=== PATIENT | male | born 1960 | race American Indian/Alaskan Native ===

== ENCOUNTER 2020-02-07 17:11 | Inpatient (IN) | payer BC ==
[2020-02-07] MEDS ORDERED: SODIUM CHLORIDE 0.9% 1000 ML 1,000 ML IV ONE ×4 (17:44→21:07)
--- NOTE | 2020-02-07 17:44 | Event Note ---
ED Screening Note ED Screening Note: pt presents with generalized weakness two days ago and fatigue states he took 20 units this morning of NPH no n/v/d no fever no cough no abd pain no hematochezia or melena PMHx DM2 no allergies to meds This initial assessment/diagnostic orders/clinical plan/treatment(s) is/are subject to change based on patients health status, clinical progression and re- assessment by fellow clinical providers in the ED. Further treatment and workup at subsequent clinical providers discretion. Patient/guardian urged not to elope from the ED as their condition may be serious if not clinically assessed and managed. Initial orders include: labs, UA
[2020-02-07 18:06] LABS: Basophils # (Auto) 0.1 K/mm3 (0.0-0.1); Eosinophils # (Auto) 0.1 K/mm3 (0.0-0.4); Hematocrit 38.5 % (35.5-45.6); Hemoglobin 12.1 gm/dl (11.8-15.2); Lymphocytes # (Auto) 1.1 K/mm3 (1.2-5.4); Lymphocytes % (Auto) 20.8 % (13.4-35.0); Mean Corpuscular HGB Conc 31 % (32-34); Mean Corpuscular Volume 101 fl (84-94); Monocytes # (Auto) 0.4 K/mm3 (0.0-0.8); Monocytes % (Auto) 6.9 % (0.0-7.3); Platelet Count 228 K/mm3 (140-440); Red Blood Count 3.82 M/mm3 (3.65-5.03); Red Cell Distribution Width 15.3 % (13.2-15.2)
--- NOTE | 2020-02-07 18:27 | Emergency Department Report ---
HPI - General Chief Complaint: Weakness Time Seen by Provider: 02/07/20 17:40 - HPI HPI: 59-year-old -[place] male presents to the emergency department from home with a complaint of a 2 to 3-day history of some generalized weakness and fatigue and elevated blood sugar despite alleged compliance with his insulin. Patient takes 36 units of Lantus at night and 20 units of NPH with meals. He denies any headache, vision change, slurred speech, chest pain, shortness of breath, fever, nausea or vomiting, abdominal pain. He has not taken anything else for his symptoms, other than home medications, prior to presentation. He does not have a primary care physician. He denies any alcohol, illicit drug use or tobacco use. No recent travel or sick contacts at home. ED Past Medical Hx - Past Medical History Hx Diabetes: Yes - Surgical History Additional Surgical History: AMPUTATION OF TOE - Social History Smoking Status: Never Smoker Substance Use Type: Cocaine ED Review of Systems ROS: Stated complaint: WEAK Other details as noted in HPI Comment: All other systems reviewed and negative Constitutional: weakness. denies: chills, fever Eyes: denies: eye pain, vision change ENT: denies: ear pain, throat pain Respiratory: denies: cough, shortness of breath Cardiovascular: denies: chest pain, palpitations Gastrointestinal: denies: abdominal pain, vomiting Genitourinary: denies: dysuria, discharge Musculoskeletal: denies: back pain, arthralgia Skin: denies: rash, lesions Neurological: denies: headache, numbness Physical Exam - Physical Exam Vital Signs: Vital Signs 02/07/20 02/07/20 17:26 17:46 Temperature 98.4 F Pulse Rate 102 H 95 H Respiratory 18 18 Rate Blood Pressure 99/38 111/61 [Left] O2 Sat by Pulse 97 99 Oximetry Physical Exam: GENERAL: The patient is well-developed well-nourished. HENT: Normocephalic. Atraumatic. Patient has dry mucous membranes. EYES: Extraocular motions are intact. NECK: Supple. Trachea is midline. CHEST/LUNGS: Clear to auscultation. There is no respiratory distress noted. HEART/CARDIOVASCULAR: Regular. There is mild tachycardia. ABDOMEN: Abdomen is soft, nontender. Patient has normal bowel sounds. SKIN: Skin is warm and dry. NEURO: The patient is awake, alert, and oriented. The patient is cooperative. The patient has no focal neurologic deficits. Normal speech. MUSCULOSKELETAL: There is no tenderness or deformity. There is no evidence of acute injury. ED Course Vital Signs 02/07/20 02/07/20 17:26 17:46 Temperature 98.4 F Pulse Rate 102 H 95 H Respiratory 18 18 Rate Blood Pressure 99/38 111/61 [Left] O2 Sat by Pulse 97 99 Oximetry - EJ/Peripheral Line Arm R Time Out Performed: Yes Indications: nurses unable to establis Skin Cleansed in Sterile Fashion: Yes Size: 20 Dressing Placed: Tegaderm, tape Patient Tolerated Procedure: well ED Medical Decision Making - Lab Data Result diagrams: 02/07/20 17:53 02/07/20 19:08 - Medical Decision Making This patient presents to the emergency department with a complaint of generalized weakness and generalized fatigue and uncontrolled blood sugar despite compliance with his Lantus and NPH insulin. The patient appears to be in early diabetic ketoacidosis as he has some venous acidosis, and elevated anion gap of 25, a blood sugar of 800 and a decreased bicarb of 16. Multiple liters of IV fluid have been ordered for resuscitation and the patient has been placed on insulin drip. Patient has been presented to the hospitalist, Dr. Merritt, for admission or further disposition. Critical Care Time: Yes Critical care time in (mins) excluding proc time.: 35 Critical care attestation.: If time is entered above; I have spent that time in minutes in the direct care of this critically ill patient, excluding procedure time. Due to the immediate potential for life-threatening deterioration due to underlying metabolic and endocrine conditions, I spent 35 minutes of critical care time with the patient. Critical Care Time: 35 minutes ED Disposition Clinical Impression: Hyponatremia, Dehydration DKA (diabetic ketoacidoses) Qualifiers: Diabetes mellitus type: type 1 Diabetes mellitus complication detail: without coma Qualified Code(s): E10.10 - Type 1 diabetes mellitus with ketoacidosis without coma Disposition: OP ADMIT IP TO THIS HOSP Is pt being admited?: Yes Condition: Stable
[2020-02-07 18:28] LABS: Bilirubin,Urine NEG (Negative); Blood,Urine NEG (Negative); Color,Urine Colorless (Yellow); Protein,Urine <15 mg/dL mg/dL (Negative); Urobilinogen,Urine < 2.0 mg/dL (<2.0); WBC,Urine < 1.0 /HPF (0.0-6.0)
[2020-02-07 18:33] LABS: Alanine Aminotransferase 10 units/L (7-56); Albumin 3.4 g/dL (3.9-5); BUN/Creatinine Ratio 17; Blood Urea Nitrogen 20 mg/dL (9-20); Calcium 8.7 mg/dL (8.4-10.2); Hemolysis Index 30
[2020-02-07] MEDS ORDERED: INSULIN REGULAR, HUMAN 100 UNITS in SODIUM CHLORIDE 0.9% 99 ML IV SCH ×2 (19:00→22:00)
--- NOTE | 2020-02-07 19:02 | History and Physical Report ---
History of Present Illness Chief complaint: I feel sick History of present illness: 59 YO Male with DM, malnutrition presents to ED for evaluation. Patient states that he has been "feeling sick" for the past 3 days with persistent symptoms over the same timeframe. Patient acknowledges generalized weakness, polydipsia, polyuria, and elevated blood glucose levels. Patient transported to [facility] via private vehicle for further care and evaluation. Patient seen and evaluated in the emergency department. Lab and imaging studies reviewed. Patient found to have serum glucose above 800 in the emergency department as well as clinical findings consistent with diabetic ketoacidosis. Patient initiated on DKA protocol and admitted to ICU due to increased risk for endocrine decompensation. Patient denies fever, chills, chest pain, palpitation, shortness of breath, recent ill contacts, trauma, or known exposure to COVID-19. No prior admission for review. All medication listed at time of admission has been reconciled. Critical care team consulted in ED. Past History Past Medical History: diabetes Past Surgical History: Other (Toe amputation) Social history: single. denies: smoking, alcohol abuse, prescription drug abuse Family history: diabetes, hypertension Medications and Allergies Allergies Allergy/AdvReac Type Severity Reaction Status Date / Time No Known Allergies Allergy Unverified 02/07/20 17:21 Active Meds: Active Medications Insulin Human Regular 100 (units/ Sodium Chloride) 100 mls @ 1 mls/hr IV TITR RADHA; Protocol Review of Systems Constitutional: no weight loss, no weight gain, no fever, no chills Ears, nose, mouth and throat: no ear pain, no tinnitis, no nose pain, no sinus pressure, no sinus pain Cardiovascular: no chest pain, no orthopnea, no palpitations, no edema, no syncope Respiratory: no cough, no cough with sputum, no dyspnea on exertion Gastrointestinal: no abdominal pain, no nausea, no vomiting, no constipation Genitourinary Male: no flank pain, no discharge, no urinary frequency, no nocturia, no incontinence Rectal: no pain, no bleeding Musculoskeletal: no neck pain, no shooting arm pain, no redness of joints Integumentary: no rash, no redness, no sores, no jaundice Neurological: no head injury, no transient paralysis, no weakness, no numbness, no tingling, no seizures, no tremors Psychiatric: no anxiety, no change in sleep habits, no sleep disturbances, no insomnia, no hypersomnia, no change in appetite, no suicidal ideation, no disorientation Endocrine: polyphagia, excessive thirst, polydipsia, polyuria, nocturia, high blood sugars, no cold intolerance, no excessive sweating Hematologic/Lymphatic: no easy bruising, no easy bleeding, no lymphadenopathy, no lymphedema Allergic/Immunologic: no allergic rhinitis, no wheezing, no anaphylaxis Exam - Constitutional Vitals: Temp Pulse Resp BP Pulse Ox 98.4 F 95 H 18 111/61 99 02/07/20 17:26 02/07/20 17:46 02/07/20 17:46 02/07/20 17:46 02/07/20 17:46 General appearance: Present: mild distress - EENT Eyes: Present: PERRL ENT: hearing intact, clear oral mucosa - Neck Neck: Present: supple, normal ROM - Respiratory Respiratory effort: normal Respiratory: bilateral: CTA - Cardiovascular Heart Sounds: Present: S1 & S2. Absent: rub, click - Extremities Extremities: pulses symmetrical, No edema Peripheral Pulses: within normal limits - Abdominal General gastrointestinal: Present: soft, non-tender, non-distended, normal bowel sounds Male genitourinary: Present: normal - Integumentary Integumentary: Present: clear, warm, dry - Musculoskeletal Musculoskeletal: generalized weakness - Psychiatric Psychiatric: appropriate mood/affect, intact judgment & insight - Neurologic Neurologic: CNII-XII intact, moves all extremities Results - Labs CBC & Chem 7: 02/07/20 17:53 02/07/20 19:08 Labs: Abnormal lab results 02/07/20 02/07/20 02/07/20 Range/Units 17:43 17:53 17:53 MCV 101 H (84-94) fl MCHC 31 L (32-34) % RDW 15.3 H (13.2-15.2) % Lymph # 1.1 L (1.2-5.4) K/mm3 Seg Neutrophils % 70.3 H (40.0-70.0) % VBG pH (7.320-7.420) Sodium 125 L (137-145) mmol/L Chloride 88.8 L (98-107) mmol/L Carbon Dioxide 16 L (22-30) mmol/L Glucose 797 H* (75-100) mg/dL POC Glucose > 500 H (70-105) Albumin 3.4 L (3.9-5) g/dL 02/07/20 Range/Units 17:53 MCV (84-94) fl MCHC (32-34) % RDW (13.2-15.2) % Lymph # (1.2-5.4) K/mm3 Seg Neutrophils % (40.0-70.0) % VBG pH 7.315 L (7.320-7.420) Sodium (137-145) mmol/L Chloride (98-107) mmol/L Carbon Dioxide (22-30) mmol/L Glucose (75-100) mg/dL POC Glucose (70-105) Albumin (3.9-5) g/dL Assessment and Plan - Patient Problems (1) DKA (diabetic ketoacidoses) Current Visit: Yes Status: Acute Qualifiers: Diabetes mellitus type: type 1 Diabetes mellitus complication detail: without coma Qualified Code(s): E10.10 - Type 1 diabetes mellitus with ketoacidosis without coma Plan to address problem: DKA protocol: Admit to ICU, insulin drip therapy, IV fluid resuscitation therapy, serial BMP, monitor urine output every shift, monitor serum potassium, potassium repletion as per protocol, monitor anion gap. The high probability of a clinically significant, sudden or life threatening deterioration of the [neuro, endocrine, renal] system(s) required my full and direct attention, intervention and personal management. The aggregate critical care time was [65] minutes. This time is in addition to time spent performing reported procedures but includes the following: [x] Data Review and interpretation [x] Patient assessment and monitoring of vital signs [x] Documentation [x] Medication orders and management (2) DVT prophylaxis Current Visit: Yes Status: Acute Plan to address problem: SCD to bilateral lower extremities while in bed, prophylactic heparin (3) Advance care planning Current Visit: Yes Status: Acute Plan to address problem: Disease education conducted, patient is full code, patient knowledges understanding and agreement with care plan, +30 minutes
[2020-02-07 19:40] LABS: BUN/Creatinine Ratio 16; Blood Urea Nitrogen 21 mg/dL (9-20); Calcium 8.8 mg/dL (8.4-10.2); Hemolysis Index 31
[2020-02-07] MEDS ORDERED: SODIUM BICARB 8.4% 50 MEQ/50 ML SYRINGE IV ONE ×2 (21:08→22:57)
[2020-02-07 21:50] LABS: BUN/Creatinine Ratio 20; Blood Urea Nitrogen 22 mg/dL (9-20); Calcium 8.3 mg/dL (8.4-10.2); Hemolysis Index 7
[2020-02-07] MEDS ORDERED: SODIUM CHLORIDE 0.9% 1000 ML 2,000 ML ONE (22:57)
[2020-02-08 00:39] LABS: BUN/Creatinine Ratio 19; Blood Urea Nitrogen 19 mg/dL (9-20); Calcium 8.4 mg/dL (8.4-10.2); Hemolysis Index 10
[2020-02-08] MEDS ORDERED: D5W/0.45% NACL/KCL 20 MEQ 20 MEQ/1,000 ML BAG IV SCH (02:00)
[2020-02-08 04:58] LABS: BUN/Creatinine Ratio 18; Blood Urea Nitrogen 16 mg/dL (9-20); Calcium 8.4 mg/dL (8.4-10.2); Hemolysis Index 4
[2020-02-08 06:25] LABS: BUN/Creatinine Ratio 20; Blood Urea Nitrogen 16 mg/dL (9-20); Calcium 8.1 mg/dL (8.4-10.2); Hemolysis Index 3
--- NOTE | 2020-02-08 12:07 | Consultation ---
History of Present Illness Consult date: 02/08/20 Requesting physician: ALEXI HENSON Reason for consult: other (DKA) History of present illness: PULMONARY/CCM CONSULT NOTE (Full dictation # [id number]) Please see dictated notes for full details Past History Past Medical History: diabetes Past Surgical History: Other (Toe amputation) Social history: single. denies: smoking, alcohol abuse, prescription drug abuse Family history: diabetes, hypertension Medications and Allergies Allergies Allergy/AdvReac Type Severity Reaction Status Date / Time No Known Allergies Allergy Unverified 02/07/20 17:21 Home Medications Medication Instructions Recorded Confirmed Last Taken Type Insulin Glargine [Lantus VIAL] 36 unit SUB-Q QHS 02/07/20 02/07/20 Unknown History Insulin Regular, Human [HumuLIN R] 0 units SUB-Q ACHS 30 Days 02/09/20 Unknown Rx Active Meds: Active Medications Sodium Chloride (Nacl 0.9% 1000 Ml) 1,000 mls @ 100 mls/hr IV DIRECT RADHA Insulin Human NPH (Humulin N) 10 unit SUB-Q BIDDIAB RADHA Last Admin: 02/08/20 09:56 Dose: 10 unit Documented by: Insulin Human Regular (Humulin R) 0 units SUB-Q ACHS RADHA; Protocol Sodium Chloride (Sodium Chloride Flush Syringe 10 Ml) 10 ml IV BID RADHA Last Admin: 02/07/20 23:11 Dose: 10 ml Documented by: Sodium Chloride (Sodium Chloride Flush Syringe 10 Ml) 10 ml IV PRN PRN PRN Reason: LINE FLUSH Physical Examination Vital signs: Vital Signs Temp Pulse Resp BP Pulse Ox 98.4 F 102 H 18 99/38 97 02/07/20 17:26 02/07/20 17:26 02/07/20 17:26 02/07/20 17:26 02/07/20 17:26 Results - Laboratory Findings CBC and BMP: 02/07/20 17:53 02/09/20 09:10 Abnormal lab findings: Abnormal Labs 02/07/20 02/07/20 02/07/20 17:43 17:53 17:53 MCV 101 H MCHC 31 L RDW 15.3 H Lymph # 1.1 L Seg Neutrophils % 70.3 H VBG pH Sodium 125 L Potassium Chloride 88.8 L Carbon Dioxide 16 L BUN Glucose 797 H* POC Glucose > 500 H Calcium Albumin 3.4 L 02/07/20 02/07/20 02/07/20 17:53 19:08 21:00 MCV MCHC RDW Lymph # Seg Neutrophils % VBG pH 7.315 L Sodium 127 L 131 L Potassium 5.4 H Chloride 88.2 L 92.7 L Carbon Dioxide 19 L 17 L BUN 21 H 22 H Glucose 856 H* 676 H* POC Glucose Calcium 8.3 L Albumin 02/07/20 02/07/20 02/07/20 21:59 23:27 23:35 MCV MCHC RDW Lymph # Seg Neutrophils % VBG pH Sodium Potassium Chloride Carbon Dioxide BUN Glucose 372 H POC Glucose > 500 H 402 H Calcium Albumin 02/08/20 02/08/20 02/08/20 01:35 02:48 03:45 MCV MCHC RDW Lymph # Seg Neutrophils % VBG pH Sodium Potassium Chloride Carbon Dioxide BUN Glucose POC Glucose 249 H 194 H 153 H Calcium Albumin 02/08/20 02/08/20 02/08/20 04:03 04:41 05:53 MCV MCHC RDW Lymph # Seg Neutrophils % VBG pH Sodium Potassium Chloride 107.5 H 107.9 H Carbon Dioxide BUN Glucose 145 H 117 H POC Glucose 148 H Calcium 8.1 L Albumin 02/08/20 02/08/20 07:10 08:25 MCV MCHC RDW Lymph # Seg Neutrophils % VBG pH Sodium Potassium Chloride Carbon Dioxide BUN Glucose POC Glucose 108 H 125 H Calcium Albumin
[2020-02-08] MEDS: INSULIN REGULAR, HUMAN 100 UNITS/1 ML SUB-Q SCH ×3 (12:11→22:02)
--- NOTE | 2020-02-08 15:01 | Progress Note ---
Assessment and Plan DKA, due to dietary noncompliance Diabetes mellitus type 2 Mild BORIS due to vasomotor nephropathy Hyperkalemia, resolved with IV fluid Hyponatremia due to hyperglycemia, resolved - His anion gap closed, will stop insulin drip - place on consistent carb diet, SSI and long acting insulin - monitor BMP, cont iv fluid - counselled for dietary compliance - cont DVT and GI Px - transfer to tele Subjective Date of service: 02/08/20 Interval history: Patient seen and examined. Medical records and medication list reviewed. No acute event overnight noted by the RN. Patient denies any chest pain or difficulty breathing. Patient's anion gap has closed and blood glucose persistently below 200 Discussed plan of care at bedside with patient. Objective - Exam Narrative Exam: GENERAL: well-developed -[place] male lying on bed appeared to be in no discomfort. HEENT: Normocephalic. Atraumatic. No conjunctival congestion or icterus. Patient has moist mucous membranes. NECK: Supple. Trachea midline. CHEST/LUNGS: Clear to auscultated bilaterally, breathing nonlabored. No wheezes crackles or rhonchi. HEART/CARDIOVASCULAR: Regular in rate and rhythm. S1 and S2 positive. ABDOMEN: Abdomen is soft, nontender. Patient has normal bowel sounds. SKIN: There is no rash. Warm and dry. NEURO: No focal motor deficit. Follows command. MUSCULOSKELETAL: No joint effusion or tenderness. EXTRIMITY: No edema, no cyanosis or clubbing. PSYCH: Cooperative. - Constitutional Vitals: Vital Signs - 12hr 02/08/20 02/08/20 02/08/20 03:10 04:00 04:13 Temperature 98.2 F Pulse Rate 73 67 Pulse Rate [ From Monitor] Pulse Rate [ Right Dorsalis Pedis] Pulse Rate [ Right Radial] Respiratory 14 13 Rate Blood Pressure 96/44 103/55 O2 Sat by Pulse 96 99 Oximetry 02/08/20 02/08/20 02/08/20 04:14 05:00 06:00 Temperature Pulse Rate 69 66 Pulse Rate [ From Monitor] Pulse Rate [ Right Dorsalis Pedis] Pulse Rate [ Right Radial] Respiratory 14 12 Rate Blood Pressure 118/49 127/61 O2 Sat by Pulse 99 99 98 Oximetry 02/08/20 02/08/20 02/08/20 07:00 08:00 09:00 Temperature 98.4 F Pulse Rate 68 65 67 Pulse Rate [ 65 From Monitor] Pulse Rate [ 65 Right Dorsalis Pedis] Pulse Rate [ 65 Right Radial] Respiratory 12 14 11 L Rate Blood Pressure 124/66 131/58 131/57 O2 Sat by Pulse 97 99 99 Oximetry 02/08/20 02/08/20 02/08/20 10:00 11:00 12:00 Temperature 98.1 F Pulse Rate 67 66 68 Pulse Rate [ 65 From Monitor] Pulse Rate [ 65 Right Dorsalis Pedis] Pulse Rate [ 64 Right Radial] Respiratory 15 16 14 Rate Blood Pressure 131/58 143/78 142/87 O2 Sat by Pulse 98 97 97 Oximetry 02/08/20 13:00 Temperature Pulse Rate 77 Pulse Rate [ From Monitor] Pulse Rate [ Right Dorsalis Pedis] Pulse Rate [ Right Radial] Respiratory 20 Rate Blood Pressure 137/68 O2 Sat by Pulse 95 Oximetry - Labs CBC & Chem 7: 02/07/20 17:53 02/09/20 09:10 Labs: Abnormal lab results 02/07/20 02/07/20 02/07/20 Range/Units 17:43 17:53 17:53 MCV 101 H (84-94) fl MCHC 31 L (32-34) % RDW 15.3 H (13.2-15.2) % Lymph # 1.1 L (1.2-5.4) K/mm3 Seg Neutrophils % 70.3 H (40.0-70.0) % VBG pH (7.320-7.420) Sodium 125 L (137-145) mmol/L Potassium (3.6-5.0) mmol/L Chloride 88.8 L (98-107) mmol/L Carbon Dioxide 16 L (22-30) mmol/L BUN (9-20) mg/dL Glucose 797 H* (75-100) mg/dL POC Glucose > 500 H (70-105) Calcium (8.4-10.2) mg/dL Albumin 3.4 L (3.9-5) g/dL 02/07/20 02/07/20 02/07/20 Range/Units 17:53 19:08 21:00 MCV (84-94) fl MCHC (32-34) % RDW (13.2-15.2) % Lymph # (1.2-5.4) K/mm3 Seg Neutrophils % (40.0-70.0) % VBG pH 7.315 L (7.320-7.420) Sodium 127 L 131 L (137-145) mmol/L Potassium 5.4 H (3.6-5.0) mmol/L Chloride 88.2 L 92.7 L (98-107) mmol/L Carbon Dioxide 19 L 17 L (22-30) mmol/L BUN 21 H 22 H (9-20) mg/dL Glucose 856 H* 676 H* (75-100) mg/dL POC Glucose (70-105) Calcium 8.3 L (8.4-10.2) mg/dL Albumin (3.9-5) g/dL 02/07/20 02/07/20 02/07/20 Range/Units 21:59 23:27 23:35 MCV (84-94) fl MCHC (32-34) % RDW (13.2-15.2) % Lymph # (1.2-5.4) K/mm3 Seg Neutrophils % (40.0-70.0) % VBG pH (7.320-7.420) Sodium (137-145) mmol/L Potassium (3.6-5.0) mmol/L Chloride (98-107) mmol/L Carbon Dioxide (22-30) mmol/L BUN (9-20) mg/dL Glucose 372 H (75-100) mg/dL POC Glucose > 500 H 402 H (70-105) Calcium (8.4-10.2) mg/dL Albumin (3.9-5) g/dL 02/08/20 02/08/20 02/08/20 Range/Units 01:35 02:48 03:45 MCV (84-94) fl MCHC (32-34) % RDW (13.2-15.2) % Lymph # (1.2-5.4) K/mm3 Seg Neutrophils % (40.0-70.0) % VBG pH (7.320-7.420) Sodium (137-145) mmol/L Potassium (3.6-5.0) mmol/L Chloride (98-107) mmol/L Carbon Dioxide (22-30) mmol/L BUN (9-20) mg/dL Glucose (75-100) mg/dL POC Glucose 249 H 194 H 153 H (70-105) Calcium (8.4-10.2) mg/dL Albumin (3.9-5) g/dL 02/08/20 02/08/20 02/08/20 Range/Units 04:03 04:41 05:53 MCV (84-94) fl MCHC (32-34) % RDW (13.2-15.2) % Lymph # (1.2-5.4) K/mm3 Seg Neutrophils % (40.0-70.0) % VBG pH (7.320-7.420) Sodium (137-145) mmol/L Potassium (3.6-5.0) mmol/L Chloride 107.5 H 107.9 H (98-107) mmol/L Carbon Dioxide (22-30) mmol/L BUN (9-20) mg/dL Glucose 145 H 117 H (75-100) mg/dL POC Glucose 148 H (70-105) Calcium 8.1 L (8.4-10.2) mg/dL Albumin (3.9-5) g/dL 02/08/20 02/08/20 Range/Units 07:10 08:25 MCV (84-94) fl MCHC (32-34) % RDW (13.2-15.2) % Lymph # (1.2-5.4) K/mm3 Seg Neutrophils % (40.0-70.0) % VBG pH (7.320-7.420) Sodium (137-145) mmol/L Potassium (3.6-5.0) mmol/L Chloride (98-107) mmol/L Carbon Dioxide (22-30) mmol/L BUN (9-20) mg/dL Glucose (75-100) mg/dL POC Glucose 108 H 125 H (70-105) Calcium (8.4-10.2) mg/dL Albumin (3.9-5) g/dL
[2020-02-08] MEDS ORDERED: INSULIN NPH, HUMAN 100 UNIT/1 ML SUB-Q SCH (17:00)
[2020-02-08] MEDS ORDERED: DEXTROSE 50% IN WATER (25GM) 50 ML VIAL IV PRN (17:06)
[2020-02-08] MEDS: SODIUM CHLORIDE 0.9% 1000 ML 1,000 ML IV SCH (18:22)
[2020-02-08] MEDS ORDERED: ACETAMINOPHEN 325 MG TAB PO PRN (18:48)
[2020-02-08] MEDS ORDERED: INSULIN GLARGINE 100 UNITS/ML SUB-Q SCH (22:00)
[2020-02-09 06:01] VITALS: BP 118/72
[2020-02-09] MEDS: INSULIN REGULAR, HUMAN 100 UNITS/1 ML SUB-Q SCH ×2 (08:33→12:23)
[2020-02-09 10:03] LABS: BUN/Creatinine Ratio 13; Blood Urea Nitrogen 9 mg/dL (9-20); Calcium 8.2 mg/dL (8.4-10.2); Hemolysis Index 48
--- NOTE | 2020-02-09 12:29 | Discharge Summary ---
Providers - Providers Date of Admission: 02/07/20 21:25 Date of discharge: 02/09/20 Attending physician: NATHAN RAMOS 02/07/20 21:25 Consult to Physician [CONS] Routine Comment: Consulting Provider: JES MCKENZIE Physician Instructions: Reason For Exam: DKA Primary care physician: [facility] [employer] [facility] Hospitalization Condition: Stable Hospital course: 59 YO Male with DM, malnutrition presents to ED with c/o "feeling sick" for the past 3 days along with polydipsia, polyuria, and elevated blood glucose levels. Patient stated that he ate a double chili burger, soda and fries before his symptoms started. patient found to have serum glucose above 800 in the emergency department as well as clinical findings consistent with diabetic ketoacidosis. Patient given iv fluid bolus in the ER, admitted to ICU on insulin drip. Patient was weaned off from insulin drip as BG improved and anion gap closed. Patient was continued on iv fluid, consistent carb diet, Placed on Long-acting insulin and SSI. Adjusted long acting insulin dose to better improve BG level, counselled for dietary and insulin regimen compliance. Patient was then discharged home in stable condition with outpt f/u. Discharge diagnosis: DKA, due to dietary noncompliance Diabetes mellitus type 2 Mild BORIS due to vasomotor nephropathy Hyperkalemia, resolved with IV fluid Hyponatremia due to hyperglycemia, resolved DVT prophylaxis Full CODE STATUS Physical exam: GENERAL: well-developed -[place] male lying on bed appeared to be in no discomfort. HEENT: Normocephalic. Atraumatic. No conjunctival congestion or icterus. Patient has moist mucous membranes. NECK: Supple. Trachea midline. CHEST/LUNGS: Clear to auscultated bilaterally, breathing nonlabored. No wheezes crackles or rhonchi. HEART/CARDIOVASCULAR: Regular in rate and rhythm. S1 and S2 positive. ABDOMEN: Abdomen is soft, nontender. Patient has normal bowel sounds. SKIN: There is no rash. Warm and dry. NEURO: No focal motor deficit. Follows command. MUSCULOSKELETAL: No joint effusion or tenderness. EXTRIMITY: No edema, no cyanosis or clubbing. PSYCH: Cooperative. Disposition: TO HOME OR SELFCARE Time spent for discharge: 34 minutes Core Measure Documentation - Palliative Care Palliative Care/ Comfort Measures: Not Applicable - Core Measures Any of the following diagnoses?: none Exam - Constitutional Vitals: Temp Pulse Resp BP Pulse Ox 98.2 F 66 18 118/72 98 02/09/20 04:27 02/09/20 04:27 02/09/20 04:27 02/09/20 04:27 02/09/20 04:27 Plan Activity: advance as tolerated Weight Bearing Status: Weight Bear as Tolerated Diet: diabetic Special Instructions: record blood sugar diary Prescriptions: Insulin Regular, Human [HumuLIN R] 0 units SUB-Q ACHS 30 Days
[2020-02-09] MEDS: SODIUM CHLORIDE 0.9% 1000 ML 1,000 ML IV SCH (13:02)
--- NOTE | 2020-02-09 13:14 | Progress Note ---
Subjective Date of service: 02/09/20 Interval history: Patient is seen today for: Seen and examined at bedside; 24hour events reviewed; nursing and respiratory care staff consulted; no adverse overnight events reported to me; Objective Vital Signs - 12hr 02/09/20 04:27 Temperature 98.2 F Pulse Rate 66 Respiratory 18 Rate Blood Pressure 118/72 O2 Sat by Pulse 98 Oximetry CBC and BMP: 02/07/20 17:53 02/09/20 09:10 Abnormal lab findings: Abnormal Labs 02/07/20 02/07/20 02/07/20 17:43 17:53 17:53 MCV 101 H MCHC 31 L RDW 15.3 H Lymph # 1.1 L Seg Neutrophils % 70.3 H VBG pH Sodium 125 L Potassium Chloride 88.8 L Carbon Dioxide 16 L BUN Creatinine Glucose 797 H* POC Glucose > 500 H Calcium Albumin 3.4 L 02/07/20 02/07/20 02/07/20 17:53 19:08 21:00 MCV MCHC RDW Lymph # Seg Neutrophils % VBG pH 7.315 L Sodium 127 L 131 L Potassium 5.4 H Chloride 88.2 L 92.7 L Carbon Dioxide 19 L 17 L BUN 21 H 22 H Creatinine Glucose 856 H* 676 H* POC Glucose Calcium 8.3 L Albumin 02/07/20 02/07/20 02/07/20 21:59 23:27 23:35 MCV MCHC RDW Lymph # Seg Neutrophils % VBG pH Sodium Potassium Chloride Carbon Dioxide BUN Creatinine Glucose 372 H POC Glucose > 500 H 402 H Calcium Albumin 02/08/20 02/08/20 02/08/20 01:35 02:48 03:45 MCV MCHC RDW Lymph # Seg Neutrophils % VBG pH Sodium Potassium Chloride Carbon Dioxide BUN Creatinine Glucose POC Glucose 249 H 194 H 153 H Calcium Albumin 02/08/20 02/08/20 02/08/20 04:03 04:41 05:53 MCV MCHC RDW Lymph # Seg Neutrophils % VBG pH Sodium Potassium Chloride 107.5 H 107.9 H Carbon Dioxide BUN Creatinine Glucose 145 H 117 H POC Glucose 148 H Calcium 8.1 L Albumin 02/08/20 02/08/20 02/08/20 07:10 08:25 12:02 MCV MCHC RDW Lymph # Seg Neutrophils % VBG pH Sodium Potassium Chloride Carbon Dioxide BUN Creatinine Glucose POC Glucose 108 H 125 H 287 H Calcium Albumin 02/08/20 02/08/20 02/09/20 17:23 21:31 08:35 MCV MCHC RDW Lymph # Seg Neutrophils % VBG pH Sodium Potassium Chloride Carbon Dioxide BUN Creatinine Glucose POC Glucose 183 H 216 H 240 H Calcium Albumin 02/09/20 02/09/20 09:10 12:15 MCV MCHC RDW Lymph # Seg Neutrophils % VBG pH Sodium Potassium Chloride Carbon Dioxide BUN Creatinine 0.7 L Glucose 318 H POC Glucose 256 H Calcium 8.2 L Albumin
--- NOTE | 2020-02-09 15:34 | Consultation ---
PULMONARY CRITICAL CARE CONSULTATION NOTE CONSULTING PHYSICIAN: Dr. Merritt. REASON FOR CONSULTATION: Diabetic ketoacidosis. CHIEF COMPLAINT AND HISTORY OF PRESENT ILLNESS: The patient is a 59-year-old male with a past medical history significant for diabetes, but also malnutrition, came into the Emergency Room complaining about 3 days of being feeling sick. He complained of generalized weakness, polydipsia, polyuria, blood sugar levels were reading high at home. He states that he is usually on some insulin at home and might have run out of his medications prior to coming in. He denied any sick contacts. He denied any known COVID-19 contacts. He denied any recent long distance travel or travel out of the country. In the Emergency Room, he was evaluated and found to be hyperglycemic in diabetic ketoacidosis and was admitted to the Intensive Care Unit for IV insulin therapy on the DKA protocol. We are asked to assist with management. When I stopped by to see him, he was feeling a whole lot better. Denied chest pains. Denied nausea, vomiting. Denied abdominal pain. This really is as much of the history of presentation as I have. Of note, he denies tobacco use or abuse whatsoever. PAST MEDICAL HISTORY: Diabetes, malnutrition. PAST SURGICAL HISTORY: He has had amputation of the toe. MEDICATIONS: He was on at the time I stopped by to see him were reviewed. Pertinent medications include the following: He was just been transitioned from IV insulin therapy to NPH 10 units subcutaneous b.i.d. as well as insulin via sliding scale. ALLERGIES: No known drug allergies. DIET: Thin gentleman. Denies acute weight loss or gain in the preceding few weeks to months. FAMILY AND SOCIAL HISTORY: Lives in the community. Denies alcohol, tobacco, or illicit drug use or abuse. There is a family history of diabetes and hypertension. He is single. REVIEW OF SYSTEMS: No loss of consciousness. No new onset seizures. No new onset focal weakness. He admitted to polydipsia and polyuria. Denies gross hematochezia or melena. Denies gross hematuria or dysuria. Denies any open wounds or sores on his body. He denies heat or cold intolerance. Denies periods of unexplained sadness and/or elation as may be consistent with psychiatric type disorders. Complete 13-system review of system was obtained. Pertinent positives and/or negatives as in body of history above, otherwise they are noncontributory. PHYSICAL EXAMINATION: VITAL SIGNS: At presentation, he was afebrile, temperature 98.4, pulse of 102, respiratory rate 18, blood pressure 111/61 ____, O2 sats 97%, inspired oxygen concentration at that time was not recorded. When I stopped by to see him, his O2 sats were 98% that was on room air. GENERAL: Again, he is a middle-aged thin -[place] male. Normocephalic, atraumatic, talking to me in full sentences without significantly increased respiratory effort at rest. HEAD, EYES, EARS, NOSE AND THROAT: He is anicteric. No conjunctival erythema. Oropharynx is moist. Mallampati #2 oropharynx. No gross jugular venous distention, no thyromegaly. NECK: Grossly, there were no palpable lymph nodes in the supraclavicular or submandibular lymph node chains. LUNGS: Auscultation of both lung denson were unremarkable. Lungs were clear bilaterally with good bilateral air movement. HEART: Heart sounds 1 and 2 are heard. They were regular, rate and rhythm at the time of my evaluation without overt rubs or murmurs. ABDOMEN: Soft, flat. Bowel sounds are positive, nontender. No palpable hepatosplenomegaly. EXTREMITIES: Without overt digital clubbing or cyanosis. No pedal edema. Pedal pulses are 2+ bilaterally. NEUROLOGIC: Pupils are equal, round, about 4 mm, reactive to light. Extraocular muscle movements were intact. He moves all 4 extremities spontaneously. SKIN: Normal turgor without overt cellulitis or rash in the areas I examined. PSYCHIATRIC: Mood was normal. Affect was appropriate. He had good intact judgment and insight. LABORATORY DATA: From my review, otherwise as follows: Admission white cell count 5300, hemoglobin 12.1, hematocrit 38.5, platelet count 228. No manual differential. Venous blood gas showed a pH of 7.32 at presentation. Serum sodium was 127, potassium 5.4, chloride 88, bicarbonate 19, BUN 21, creatinine 1.3, glucose was 856. Ketones were small, quantitative ketone level. Liver function tests essentially within normal limits. Albumin was slightly diminished at 3.4. Urinalysis, he was spilling glucose, but it was negative for nitrites and leukocyte esterase. No microbiology studies. No radiographic studies. ASSESSMENT: 1. Diabetic ketoacidosis. 2. Mild metabolic acidosis. 3. Pseudohyponatremia. 4. Hyperkalemia. 5. Malnutrition. I have discussed better medication compliance with the patient and he agrees that he probably needs to do a little bit better at his own healthcare. In the meantime, he will be transitioned off IV insulin therapy. Oral nutrition will be re-instituted. Aspiration precautions will be maintained. He will be on GI and DVT prophylaxis. No acute indication for anti-infective therapy. His anion gap has closed at this point. Potassium is back within normal limits. Electrolytes will be followed and corrected as necessary. He has received appropriate volume resuscitation. He will be targeted by sliding scale to keep blood glucose less than ____ 180 mg/dL. He will be placed on GI and DVT prophylaxis. Flu and pneumonia vaccination will be addressed per protocol. Thank you very much for the consult. We will follow along and make further recommendations as picture progresses/becomes clearer. He can tentatively be transferred out of the Intensive Care Unit at this point once off IV insulin therapy. JOB# [id number] KELTON/CHAD
[2020-02-09] MEDS ORDERED: INSULIN GLARGINE 100 UNITS/ML SUB-Q SCH (22:00)
== END 2020-02-09 16:20 | disposition home or self-care (01) | DRG 637 ==
LOC: ED 17:11 → CC1 21:25 → 3A 02-08 16:29
PROVIDERS: ADMIT Internal Medicine; ATTEND Internal Medicine
DX: E11.10 Type 2 diabetes mellitus with ketoacidosis without coma (principal); N17.0 Acute kidney failure with tubular necrosis; E46 Unspecified protein-calorie malnutrition; E87.1 Hypo-osmolality and hyponatremia; E87.5 Hyperkalemia; E86.0 Dehydration; Z68.20 Body mass index [BMI] 20.0-20.9, adult; Z91.11 Patient's noncompliance with dietary regimen; Z82.49 Family history of ischemic heart disease and other diseases of the circulatory system; Z83.3 Family history of diabetes mellitus; Z79.4 Long term (current) use of insulin; Z89.429 Acquired absence of other toe(s), unspecified side
CPT/HCPCS: 36415; 80048; 80053; 81001; 82010; 82805; 82962; 83735; 84100; 85025; 93005; G0378; J1815; J7030

== ENCOUNTER 2020-02-13 15:52 | Emergency (ER) | payer BC ==
[2020-02-13] MEDS ORDERED: SODIUM CHLORIDE 0.9% 1000 ML 1,000 ML IV ONE (16:36)
[2020-02-13] MEDS ORDERED: SODIUM CHLORIDE 0.9% 1000 ML 1,000 ML ONE (16:36)
--- NOTE | 2020-02-13 16:36 | Emergency Department Report ---
HPI - General Chief Complaint: Hyperglycemia Time Seen by Provider: 02/13/20 16:21 - HPI HPI: This is a 59-year-old -[place] male who is well-known to me as I saw him here about 6 days ago for early DKA. The patient presents today with the complaint of having some low blood sugar earlier today while at work. The patient did not check his blood sugar but says that he felt very weak as if he was going to pass out. He left work, went home, and ate some food. However he presents today as he says he must be cleared by a physician to return to work. At this time the patient says that he feels well, back at baseline. He does have a history of insulin-dependent diabetes for which he takes Lantus 30 units at night and Humulin R 15 units with meals. As with last time, the patient says he is compliant with his medications. Patient says that he ate both breakfast and lunch today. He does not have a primary care physician. ED Past Medical Hx - Past Medical History Previous Medical History?: Yes Hx Diabetes: Yes - Surgical History Past Surgical History?: Yes Additional Surgical History: AMPUTATION OF TOE - Social History Smoking Status: Never Smoker Substance Use Type: None - Medications Home Medications: Home Medications Medication Instructions Recorded Confirmed Last Taken Type Insulin Glargine [Lantus VIAL] 36 unit SUB-Q QHS 02/07/20 02/07/20 Unknown Histo ry Insulin Regular, Human [HumuLIN R] 0 units SUB-Q ACHS 30 Days 02/09/20 Unknown Rx ED Review of Systems ROS: Stated complaint: BLOOD SUGAR LOW Other details as noted in HPI Comment: All other systems reviewed and negative Constitutional: weakness. denies: fever Eyes: denies: eye pain, vision change ENT: denies: ear pain, throat pain Respiratory: denies: cough Cardiovascular: denies: chest pain, palpitations Endocrine: increased thirst, increased urine Gastrointestinal: denies: abdominal pain, vomiting Genitourinary: frequency. denies: dysuria Musculoskeletal: denies: back pain, arthralgia Skin: denies: rash, lesions Neurological: denies: headache, numbness Physical Exam - Physical Exam Vital Signs: Vital Signs 02/13/20 16:08 Temperature 97.9 F Pulse Rate 78 Respiratory 20 Rate Blood Pressure 131/92 O2 Sat by Pulse 98 Oximetry Physical Exam: GENERAL: The patient is well-developed well-nourished. HENT: Normocephalic. Atraumatic. Patient has moist mucous membranes. EYES: Extraocular motions are intact. No nystagmus. NECK: Supple. Trachea is midline. CHEST/LUNGS: Clear to auscultation. There is no respiratory distress noted. HEART/CARDIOVASCULAR: Regular. There is no tachycardia. There is no murmur. ABDOMEN: Abdomen is soft, nontender. Patient has normal bowel sounds. SKIN: Skin is warm and dry. NEURO: The patient is awake, alert, and oriented. The patient is cooperative. The patient has no focal neurologic deficits. Normal speech. Cranial nerves II through XII grossly intact. MUSCULOSKELETAL: There is no tenderness or deformity. There is no limitation range of motion. There is no evidence of acute injury. ED Course Vital Signs 02/13/20 16:08 Temperature 97.9 F Pulse Rate 78 Respiratory 20 Rate Blood Pressure 131/92 O2 Sat by Pulse 98 Oximetry ED Medical Decision Making - Lab Data Result diagrams: 02/13/20 16:27 02/13/20 16:27 - Medical Decision Making Patient presents with hyperglycemia but does not appear in diabetic ke toacidosis. Blood sugar is about 520 but there is no significant elevation in his anion gap and there is no venous acidosis. Patient was given IV fluid resuscitation and a dose of IV insulin and his blood sugar came down to 299. The patient has been otherwise been asymptomatic since presentation. Vital signs stable throughout his ED course. He will be discharged home to follow-up with a primary care physician and will return to the emergency department with any concerns or any acute distress. He will continue with his normal insulin regimen. Critical Care Time: No Critical care attestation.: If time is entered above; I have spent that time in minutes in the direct care of this critically ill patient, excluding procedure time. ED Disposition Clinical Impression: Hyperglycemia Disposition: DC-01 TO HOME OR SELFCARE Is pt being admited?: No Condition: Stable Instructions: Diabetic Hyperglycemia (ED) Additional Instructions: Please follow-up with a primary care physician in the next few days. Take your insulin as prescribed. Keep a blood sugar log. Return to the emergency department with any worsening of your symptoms, or with any acute distress. Referrals: PRIMARY CAREMD [Primary Care Provider] - 2-3 Days RENE ROSEN MD [Staff Physician] - 2-3 Days MAURICE CORTES MD [Staff Physician] - 2-3 Days [facility] [Provider Group] - 2-3 Days Forms: Work/School Release Form(ED) Time of Disposition: 18:46
[2020-02-13 16:59] LABS: Hematocrit 34.3 % (35.5-45.6); Hemoglobin 11.3 gm/dl (11.8-15.2); Mean Corpuscular HGB Conc 33 % (32-34); Mean Corpuscular Volume 96 fl (84-94); Platelet Count 184 K/mm3 (140-440); Red Blood Count 3.59 M/mm3 (3.65-5.03); Red Cell Distribution Width 15.2 % (13.2-15.2)
[2020-02-13 17:04] LABS: Lymphocytes % (Auto) 19.6 % (13.4-35.0); Monocytes % (Auto) 6.6 % (0.0-7.3)
[2020-02-13 17:05] LABS: Basophils % (Auto) 0.8 % (0.0-1.8); Eosinophils # (Auto) 0.1 K/mm3 (0.0-0.4); Lymphocytes # (Auto) 1.1 K/mm3 (1.2-5.4); Monocytes # (Auto) 0.4 K/mm3 (0.0-0.8)
[2020-02-13 17:07] LABS: Alanine Aminotransferase 12 units/L (7-56); Albumin 3.7 g/dL (3.9-5); BUN/Creatinine Ratio 14; Blood Urea Nitrogen 11 mg/dL (9-20); Calcium 8.7 mg/dL (8.4-10.2); Hemolysis Index 4
[2020-02-13] MEDS ORDERED: INSULIN REGULAR, HUMAN 100 UNITS/1 ML IV ONE (17:12)
[2020-02-13 18:46] VITALS: BP 141/80
== END 2020-02-13 18:53 | disposition home or self-care (01) ==
LOC: ED 15:52
DX: E11.65 Type 2 diabetes mellitus with hyperglycemia (principal); Z79.899 Other long term (current) drug therapy
CPT/HCPCS: 36415; 80053; 82010; 82805; 82962; 85025; 96361; 96374; 99284; J7030; J1815

== ENCOUNTER 2020-02-24 18:21 | Emergency (ER) | payer BC ==
[2020-02-24] MEDS ORDERED: METOCLOPRAMIDE 10 MG/2 ML INJ IV ONE (19:04)
[2020-02-24] MEDS ORDERED: diphenhydrAMINE 50 MG/ML VIAL IV ONE (19:04)
[2020-02-24 19:05] VITALS: BP 119/74
[2020-02-24] MEDS ORDERED: ONDANSETRON 4 MG ODT TAB PO ONE (19:05)
--- NOTE | 2020-02-24 19:09 | Event Note ---
ED Screening Note Date of service: 02/24/20 Time: 19:07 ED Screening Note: Patient presents for abdominal pain and nausea and vomiting for the past week. Patient has a history of diabetes, was admitted to [facility] 02/07/24 DKA Also reports history of gastroparesis and states his symptoms feel similar This initial assessment/diagnostic orders/clinical plan/treatment(s) is/are subject to change based on patients health status, clinical progression and re- assessment by fellow clinical providers in the ED. Further treatment and workup at subsequent clinical providers discretion. Patient/guardian urged not to elope from the ED as their condition may be serious if not clinically assessed and man aged. Initial orders include: Labs Reglan/Benadryl Zofran ODT given
[2020-02-24 19:23] LABS: Basophils # (Auto) 0.1 K/mm3 (0.0-0.1); Basophils % (Auto) 2.1 % (0.0-1.8); Eosinophils # (Auto) 0.1 K/mm3 (0.0-0.4); Eosinophils % (Auto) 2.1 % (0.0-4.3); Hematocrit 38.2 % (35.5-45.6); Hemoglobin 12.9 gm/dl (11.8-15.2); Lymphocytes # (Auto) 1.3 K/mm3 (1.2-5.4); Lymphocytes % (Auto) 27.8 % (13.4-35.0); Mean Corpuscular HGB Conc 34 % (32-34); Mean Corpuscular Volume 97 fl (84-94); Monocytes # (Auto) 0.3 K/mm3 (0.0-0.8); Monocytes % (Auto) 7.5 % (0.0-7.3); Platelet Count 250 K/mm3 (140-440); Red Blood Count 3.92 M/mm3 (3.65-5.03); Red Cell Distribution Width 15.2 % (13.2-15.2)
[2020-02-24 19:50] LABS: Bilirubin,Direct 0.2 mg/dL (0-0.2)
[2020-02-24 19:51] LABS: Albumin 4.3 g/dL (3.9-5)
[2020-02-24 19:53] LABS: BUN/Creatinine Ratio 15; Blood Urea Nitrogen 15 mg/dL (9-20); Calcium 9.4 mg/dL (8.4-10.2); Hemolysis Index 2
[2020-02-24] MEDS ORDERED: SODIUM CHLORIDE 0.9% 1000 ML 1,000 ML IV ONE (20:40)
[2020-02-24] MEDS ORDERED: INSULIN REGULAR, HUMAN 100 UNITS/1 ML IV ONE (20:40)
--- NOTE | 2020-02-24 21:04 | Emergency Department Report ---
HPI - HPI HPI: This is a 59-year-old male presents to the emergency department with a complaint of upper abdominal pain that is been going on for the past 4 days but worsened today while at work. He denies any nausea, vomiting, constipation or diarrhea, fever. He says that the pain actually improves with eating. Patient also presents with elevated blood sugar despite alleged compliance with his insulin. He does have a history of insulin-dependent diabetes and hypertension. I have seen this patient twice previously in the past 2 weeks at this facility for some issues with his diabetes and generalized weakness/fatigue. However he denies any of the symptoms at this time. He has not taken anything for his symptoms prior to presentation. No recent travel or sick contacts at home. He does not have a primary care physician. <TIFFANY PONCE - Last Filed: 02/24/20 23:57> <IAIN NUNEZ - Last Filed: 02/25/20 01:39> - General Chief Complaint: Nausea/Vomiting/Diarrhea Time Seen by Provider: 02/24/20 19:02 ED Past Medical Hx - Past Medical History Previous Medical History?: Yes Hx Diabetes: Yes - Surgical History Past Surgical History?: Yes Additional Surgical History: AMPUTATION OF TOE - Social History Smoking Status: Never Smoker Substance Use Type: None <TIFFANY PONCE - Last Filed: 02/24/20 23:57> <IAIN NUNEZ - Last Filed: 02/25/20 01:39> - Medications Home Medications: Home Medications Medication Instructions Recorded Confirmed Last Taken Type Insulin Glargine [Lantus VIAL] 36 unit SUB-Q QHS 02/07/20 02/07/20 Unknown History Insulin Regular, Human [HumuLIN R] 0 units SUB-Q ACHS 30 Days 02/09/20 Unknown Rx Omeprazole 20 mg PO QDAY #20 capsule. 02/25/20 Unknown Rx ED Review of Systems ROS: Stated complaint: STOMACH PAIN Other details as noted in HPI Comment: All other systems reviewed and negative Constitutional: denies: chills, fever Eyes: denies: eye pain, vision change ENT: denies: ear pain, throat pain Respiratory: denies: cough, shortness of breath Cardiovascular: denies: chest pain, palpitations Gastrointestinal: abdominal pain. denies: nausea, vomiting Genitourinary: denies: dysuria, discharge Musculoskeletal: denies: back pain, arthralgia Skin: denies: rash, lesions Neurological: denies: headache, weakness <ROSARIOTIFFANY Navas - Last Filed: 02/24/20 23:57> ROS: Stated complaint: STOMACH PAIN Other details as noted in HPI <IAIN NUNEZ - Last Filed: 02/25/20 01:39> Physical Exam - Physical Exam Vital Signs: Vital Signs 02/24/20 19:03 Temperature 98.3 F Pulse Rate 97 H Respiratory 18 Rate Blood Pressure 119/74 O2 Sat by Pulse 97 Oximetry Physical Exam: GENERAL: The patient is well-developed well-nourished. HENT: Normocephalic. Atraumatic. Patient has moist mucous membranes. EYES: Extraocular motions are intact. NECK: Supple. Trachea is midline. CHEST/LUNGS: Clear to auscultation. There is no respiratory distress noted. HEART/CARDIOVASCULAR: Regular. There is no tachycardia. There is no murmur. ABDOMEN: Abdomen is soft. Upper abdominal tenderness to palpation. No guarding. Patient has normal bowel sounds. SKIN: Skin is warm and dry. NEURO: The patient is awake, alert, and oriented. The patient is cooperative. The patient has no focal neurologic deficits. Normal speech. MUSCULOSKELETAL: There is no tenderness or deformity. There is no evidence of acute injury. <ROSARIOTIFFANY Navas - Last Filed: 02/24/20 23:57> - Physical Exam Vital Signs: Vital Signs 02/24/20 19:03 Temperature 98.3 F Pulse Rate 97 H Respiratory 18 Rate Blood Pressure 119/74 O2 Sat by Pulse 97 Oximetry <IAIN NUNEZ - Last Filed: 02/25/20 01:39> ED Course Vital Signs 02/24/20 19:03 Temperature 98.3 F Pulse Rate 97 H Respiratory 18 Rate Blood Pressure 119/74 O2 Sat by Pulse 97 Oximetry <ROSARIOTIFFANY Navas - Last Filed: 02/24/20 23:57> Vital Signs 02/24/20 19:03 Temperature 98.3 F Pulse Rate 97 H Respiratory 18 Rate Blood Pressure 119/74 O2 Sat by Pulse 97 Oximetry - Reevaluation(s) Reevaluation #1: 02/25/20 01:38 Patient sleeping comfortably in his stretcher at this time, and in no acute distress. Urinalysis not consistent with urinary tract infection. CT scan of the abdomen pelvis suggest constipation, and other nonemergent incidental findings. The patient may follow-up with an outpatient primary care doctor for these nonemergent incidental findings <IAIN NUNEZ - Last Filed: 02/25/20 01:39> ED Medical Decision Making - Lab Data Result diagrams: 02/24/20 19:10 02/24/20 19:10 - Medical Decision Making This patient presents to the emergency department with a complaint of upper abdominal pain and an episode of nausea with vomiting earlier. The patient also presents with elevated blood sugar despite alleged compliance. Patient's blood sugar is close to 550 but he does not appear in diabetic ketoacidosis as there is no significant elevation in anion gap and there is no venous acidosis. He was given a dose of IV insulin and IV fluid resuscitation and upon reevaluation the blood sugar is down to about 130. The patient continues to complain of some abdominal discomfort. Abdominal x-ray does shows nonspecific nonobstructive debbie wel gas. The patient will have a CT scan of the abdomen and pelvis with IV contrast. This will be followed by my colleague, Dr Nunez. If negative for any acute process, he will be discharged home to follow up with GI and a PCP. <TIFFANY PONCE - Last Filed: 02/24/20 23:57> - Lab Data Result diagrams: 02/24/20 19:10 02/24/20 19:10 Vital Signs 02/24/20 19:03 Temperature 98.3 F Pulse Rate 97 H Respiratory 18 Rate Blood Pressure 119/74 O2 Sat by Pulse 97 Oximetry Lab Results 02/24/20 02/24/20 02/24/20 Range/Units 18:40 19:10 19:10 WBC 4.6 (4.5-11.0) K/mm3 RBC 3.92 (3.65-5.03) M/mm3 Hgb 12.9 (11.8-15.2) gm/dl Hct 38.2 (35.5-45.6) % MCV 97 H (84-94) fl MCH 33 H (28-32) pg MCHC 34 (32-34) % RDW 15.2 (13.2-15.2) % Plt Count 250 (140-440) K/mm3 Lymph % (Auto) 27.8 (13.4-35.0) % Davison % (Auto) 7.5 H (0.0-7.3) % Eos % (Auto) 2.1 (0.0-4.3) % Baso % (Auto) 2.1 H (0.0-1.8) % Lymph # 1.3 (1.2-5.4) K/mm3 Davison # 0.3 (0.0-0.8) K/mm3 Eos # 0.1 (0.0-0.4) K/mm3 Baso # 0.1 (0.0-0.1) K/mm3 Seg Neutrophils % 60.5 (40.0-70.0) % Seg Neutrophils # 2.8 (1.8-7.7) K/mm3 VBG pH (7.320-7.420) Sodium 137 (137-145) mmol/L Potassium 4.4 (3.6-5.0) mmol/L Chloride 96.4 L (98-107) mmol/L Carbon Dioxide 25 (22-30) mmol/L Anion Gap 20 mmol/L BUN 15 (9-20) mg/dL Creatinine 1.0 (0.8-1.5) mg/dL Estimated GFR > 60 ml/min BUN/Creatinine Ratio 15 % Glucose 430 H (75-100) mg/dL POC Glucose 494 H (70-105) Calcium 9.4 (8.4-10.2) mg/dL Total Bilirubin (0.1-1.2) mg/dL Direct Bilirubin (0-0.2) mg/dL Indirect Bilirubin mg/dL AST (5-40) units/L ALT (7-56) units/L Alkaline Phosphatase (35-129) units/L Total Protein (6.3-8.2) g/dL Albumin (3.9-5) g/dL Albumin/Globulin Ratio % Lipase 13 (13-60) units/L 02/24/20 02/24/20 02/24/20 Range/Units 19:10 19:10 22:17 WBC (4.5-11.0) K/mm3 RBC (3.65-5.03) M/mm3 Hgb (11.8-15.2) gm/dl Hct (35.5-45.6) % MCV (84-94) fl MCH (28-32) pg MCHC (32-34) % RDW (13.2-15.2) % Plt Count (140-440) K/mm3 Lymph % (Auto) (13.4-35.0) % Davison % (Auto) (0.0-7.3) % Eos % (Auto) (0.0-4.3) % Baso % (Auto) (0.0-1.8) % Lymph # (1.2-5.4) K/mm3 Davison # (0.0-0.8) K/mm3 Eos # (0.0-0.4) K/mm3 Baso # (0.0-0.1) K/mm3 Seg Neutrophils % (40.0-70.0) % Seg Neutrophils # (1.8-7.7) K/mm3 VBG pH 7.381 (7.320-7.420) Sodium (137-145) mmol/L Potassium (3.6-5.0) mmol/L Chloride (98-107) mmol/L Carbon Dioxide (22-30) mmol/L Anion Gap mmol/L BUN (9-20) mg/dL Creatinine (0.8-1.5) mg/dL Estimated GFR ml/min BUN/Creatinine Ratio % Glucose (75-100) mg/dL POC Glucose 127 H (70-105) Calcium (8.4-10.2) mg/dL Total Bilirubin 0.60 (0.1-1.2) mg/dL Direct Bilirubin 0.2 (0-0.2) mg/dL Indirect Bilirubin 0.4 mg/dL AST 25 (5-40) units/L ALT 11 (7-56) units/L Alkaline Phosphatase 109 (35-129) units/L Total Protein 7.8 (6.3-8.2) g/dL Albumin 4.3 (3.9-5) g/dL Albumin/Globulin Ratio 1.2 % Lipase (13-60) units/L - EKG Data -: EKG Interpreted by Me EKG shows normal: sinus rhythm Rate: normal - EKG Data 02/25/20 00:23 Sinus rhythm, 65 bpm, left axis deviation, poor R wave progression, intervals unremarkable, not a STEMI, no prior for comparison at this point in time - Radiology Data Radiology results: report reviewed, image reviewed Print Report Referring Physician: TIFFANY PONCE Patient Name: SHANNON MATTSON Date of : 1960 Sex: Male Report Date: 2020-02-24 Report Status: Finalized Findings [facility] [address] [place] [address] XRay Report Signed Patient: SHANNON MATTSON MR#: [id number] : 1960 Acct:[id number] Age/Sex: 59 / M ADM Date: 02/24/20 Loc: ED Attending Dr: Ordering Physician: TIFFANY PONCE DO Date of Service: 02/24/20 Procedure(s): XR abdomen 2V Accession Number(s): [id number] cc: TIFFANY PONCE DO Fluoro Time In Minutes: ABDOMEN FLAT AND UPRIGHT 2105 INDICATION: abd pain COMPARISON: None available. FINDINGS: Moderate increase in colonic stool burden is seen without dilatation consistent with constipation. No evidence of bowel obstruction is seen. No pneumoperitoneum is noted. No obvious urinary tract calculi are seen. Small calcification in the right lower pelvis probably is vascular though is technically indeterminate. Signer Name: Masood Live MD Signed: 02/24/2020 9:38 PM Workstation Name: [id number] Transcribed By: GJ Dictated By: Masood Live MD Electronically Authenticated By: Masood Live MD Signed Date/Time: 02/24/202137 DD/ 36 <IAIN NUNEZ Last Filed: 02/25/20 01:39> Critical Care Time: No Critical care attestation.: If time is entered above; I have spent that time in minutes in the direct care of this critically ill patient, excluding procedure time. <TIFFANY PONCE Last Filed: 02/24/20 23:57> Critical care attestation.: If time is entered above; I have spent that time in minutes in the direct care of this critically ill patient, excluding procedure time. <IAIN NUNEZ Last Filed: 02/25/20 01:39> ED Disposition Is pt being admited?: No Time of Disposition: 00:04 <TIFFANY PONCE Last Filed: 02/24/20 23:57> Is pt being admited?: No Does the pt Need Aspirin: No <IAIN NUNEZ Filed: 02/25/20 01:39> Clinical Impression: Hyperglycemia, Abdominal pain Disposition: - TO HOME OR SELFCARE Condition: Stable Instructions: Abdominal Pain (ED), Diabetic Hyperglycemia (ED) Additional Instructions: Please follow-up with a primary care physician in the next few days. I have given you a referral for [facility] to follow-up regarding your abdominal pains. Take your diabetes medications as prescribed. Try to stay away from foods that are high in sugar, carbohydrates and starches. Keep a blood sugar log. Return to the emergency department with any worsening of your symptoms or any acute distress. Prescriptions: Omeprazole 20 mg PO QDAY #20 capsule. Referrals: [facility] [Provider Group] - 3-5 Days [facility] [Provider Group] - 3-5 Days MAURICE CORTES MD [Staff Physician] - 3-5 Days
--- NOTE | 2020-02-24 21:43 | XRay Report ---
ABDOMEN FLAT AND UPRIGHT 2104 INDICATION: abd pain COMPARISON: None available. FINDINGS: Moderate increase in colonic stool burden is seen without dilatation consistent with consti pation. No evidence of bowel obstruction is seen. No pneumoperitoneum is noted. No obvious urinary tr act calculi are seen. Small calcification in the right lower pelvis probably is vascular though is te chnically indeterminate. Signer Name: Masood Live MD Signed: 02/24/2020 9:38 PM Workstation Name: [id number]
--- NOTE | 2020-02-25 00:32 | Cat Scan Report ---
CT ABDOMEN AND PELVIS WITHOUT IV CONTRAST INDICATION: Pt complains of upper abdominal pain x 1 week. No previous abdominal surgeries.. COMPARISON: None available. TECHNIQUE: All CT scans at this facility use dose modulation, automated exposure control, iterative reconstructi on or weight based dosing, when appropriate, to reduce radiation dose to as low as reasonably achieva ble. FINDINGS: Lung Bases: No significant abnormality. Skeletal System: No acute abnormality. ABDOMEN: Liver: The liver is diffusely somewhat hyperdense. This is nonspecific but could be seen in the setti ng of secondary hemochromatosis or certain drug therapies. Gallbladder: Contracted. Bile Ducts: No significant abnormality. Pancreas: No significant abnormality. Spleen: No significant abnormality. Adrenals: No significant abnormality. Right Kidney: No significant abnormality. Left Kidney: No significant abnormality. Upper GI tract: No significant abnormality. Lymph Nodes: No significant adenopathy. Aorta: No significant abnormality. Additional Findings: No significant abnormality. PELVIS: Colon: No acute abnormality. Constipation. Urinary Bladder and Distal Ureters: There is mild diffuse bladder wall thickening. Appendix: No significant abnormality. Lymph Nodes: No significant adenopathy. Additional Findings: None. IMPRESSION: 1. Within the limitations of non contrast technique, no acute process in the abdomen or pelvis. 2. Constipation. 3. Mild bladder wall thickening could be due to some degree of bladder outlet obstruction but is nons pecific. This could be due at least in part to partial decompression. 4. Additional findings as above. Signer Name: Jaguar Panchal MD Signed: 02/25/2020 12:28 AM Workstation Name: [id number]
[2020-02-25 00:41] LABS: Bilirubin,Urine NEG (Negative); Blood,Urine NEG (Negative); Color,Urine Straw (Yellow); Mucus,Urine FEW /HPF; Protein,Urine <15 mg/dL mg/dL (Negative); Urobilinogen,Urine < 2.0 mg/dL (<2.0); WBC,Urine < 1.0 /HPF (0.0-6.0)
== END 2020-02-25 01:58 | disposition home or self-care (01) ==
LOC: ED 18:21
DX: E11.65 Type 2 diabetes mellitus with hyperglycemia (principal); R10.10 Upper abdominal pain, unspecified
CPT/HCPCS: 36415; 74019; 74176; 80048; 80076; 81001; 82805; 82962; 83690; 85025; 93005; 96361; 96374; 99285; J7030; J1815; Q0162

== ENCOUNTER 2020-05-06 11:42 | Emergency (ER) | payer BC ==
[2020-05-06 12:01] VITALS: BP 118/73
[2020-05-06] MEDS ORDERED: ALUM-MAG HYDROXIDE-SIMETHICONE 200-200-20MG/5ML ORAL LIQD 30 ML PO ONE (14:00)
[2020-05-06] MEDS ORDERED: PANTOPRAZOLE 40 MG TAB PO ONE (14:00)
[2020-05-06] MEDS ORDERED: LIDOCAINE VISCOUS 2% 15 ML ORAL LIQD PO ONE (14:00)
--- NOTE | 2020-05-06 14:06 | Emergency Department Report ---
ED General Adult HPI - General Chief complaint: Abdominal Pain Stated complaint: THROAT PAINS Time Seen by Provider: 05/06/20 12:57 Source: patient Mode of arrival: Ambulatory Limitations: No Limitations - History of Present Illness Initial comments: 59-year-old -[place]ian male patient with history of GERD, diabetes, and hypertension presents with complaints of epigastric discomfort and feeling like his food is getting stuck with swallowing x this morning. He rates his pain as a 0/10 in severity and denies any chest pain, shortness of breath, palpitations, abdominal swelling, or leg swelling. He states he stopped taking his Prilosec 1 month ago. He denies any heavy alcohol use or nausea/vomiting/diarrhea/melena/hematochezia. Patient also denies any headache, difficulty with speech/ambulation, numbness/tingling/weakness in his limbs, dizziness, or vision changes. -: Sudden - Related Data Previous Rx's Medication Instructions Recorded Last Taken Type Omeprazole 20 mg PO QDAY #20 capsule. 02/25/20 Unknown Rx Insulin Glargine [Lantus VIAL] 30 units SUB-Q QHS #5 pen 02/26/20 Unknown Rx Insulin Regular, Human [HumuLIN R] 10 units SUB-Q AC 30 Days #5 pen 02/26/20 Unknown Rx Syrge-Ndl,Ins 0.5 ml Half Prabhu 1 each ACHS #100 disp.syrin 02/26/20 Unknown Rx [Droplet Insulin Syringe] Pantoprazole [Protonix] 40 mg PO QAM #15 tablet 05/06/20 Unknown Rx Allergies Allergy/AdvReac Type Severity Reaction Status Date / Time No Known Allergies Allergy Unverified 02/07/20 17:21 ED Review of Systems ROS: Stated complaint: THROAT PAINS Other details as noted in HPI Constitutional: denies: chills, fever ENT: denies: throat pain Respiratory: denies: cough, shortness of breath Cardiovascular: denies: chest pain Gastrointestinal: as per HPI. denies: nausea, vomiting, diarrhea, constipation, hematemesis, melena, hematochezia Musculoskeletal: denies: back pain Skin: denies: rash, lesions, change in color Hematological/Lymphatic: denies: easy bleeding, easy bruising ED Past Medical Hx - Past Medical History Previous Medical History?: Yes Hx Congestive Heart Failure: No Hx Diabetes: Yes Hx Liver Disease: No Hx Asthma: No Hx COPD: No - Surgical History Additional Surgical History: AMPUTATION OF TOE - Social History Smoking Status: Never Smoker - Medications Home Medications: Home Medications Medication Instructions Recorded Confirmed Last Taken Type Omeprazole 20 mg PO QDAY #20 capsule. 02/25/20 02/25/20 Unknown Rx Insulin Glargine [Lantus VIAL] 30 units SUB-Q QHS #5 pen 02/26/20 Unknown Rx Insulin Regular, Human [HumuLIN R] 10 units SUB-Q AC 30 Days #5 pen 02/26/20 Unknown Rx Syrge-Ndl,Ins 0.5 ml Half Prabhu 1 each ACHS #100 disp.syrin 02/26/20 Unknown Rx [Droplet Insulin Syringe] Pantoprazole [Protonix] 40 mg PO QAM #15 tablet 05/06/20 Unknown Rx ED Physical Exam - General Limitations: No Limitations General appearance: alert, in no apparent distress - Head Head exam: Present: atraumatic, normocephalic - Eye Eye exam: Present: normal appearance. Absent: scleral icterus - ENT ENT exam: Present: normal exam, normal orophraynx - Neck Neck exam: Present: normal inspection, full ROM. Absent: tenderness, lymphadenopathy - Respiratory Respiratory exam: Present: normal lung sounds bilaterally. Absent: respiratory distress, chest wall tenderness - Cardiovascular Cardiovascular Exam: Present: regular rate, normal rhythm. Absent: systolic murmur, diastolic murmur, rubs, gallop - GI/Abdominal GI/Abdominal exam: Present: soft, tenderness (Minimal epigastric discomfort with deep palpation), normal bowel sounds. Absent: distended, guarding, rebound, rigid, organomegaly, mass - Extremities Exam Extremities exam: Present: normal inspection - Back Exam Back exam: Present: normal inspection - Neurological Exam Neurological exam: Present: alert, oriented X3 - Psychiatric Psychiatric exam: Present: normal affect, normal mood - Skin Skin exam: Present: warm, dry, intact, normal color. Absent: rash, cyanosis, erythema, ecchymosis ED Course Vital Signs 05/06/20 12:01 Temperature 98.2 F Pulse Rate 73 Respiratory 16 Rate Blood Pressure 118/73 [Right] ED Medical Decision Making - Lab Data Result diagrams: 05/06/20 15:04 05/06/20 15:04 Lab Results 05/06/20 05/06/2005/06/20 Range/Units 15:04 15:04 15:04 WBC 5.7 (4.5-11.0) K/mm3 RBC 4.36 (3.65-5.03) M/mm3 Hgb 13.9 (11.8-15.2) gm/dl Hct 42.6 (35.5-45.6) % MCV 98 H (84-94) fl MCH 32 (28-32) pg MCHC 33 (32-34) % RDW 13.0 L (13.2-15.2) % Plt Count 188 (140-440) K/mm3 Lymph % (Auto) 28.1 (13.4-35.0) % Mcleod % (Auto) 7.4 H (0.0-7.3) % Eos % (Auto) 8.1 H (0.0-4.3) % Baso % (Auto) 0.5 (0.0-1.8) % Lymph # 1.6 (1.2-5.4) K/mm3 Mcleod # 0.4 (0.0-0.8) K/mm3 Eos # 0.5 H (0.0-0.4) K/mm3 Baso # 0.0 (0.0-0.1) K/mm3 Seg Neutrophils % 55.9 (40.0-70.0) % Seg Neutrophils # 3.2 (1.8-7.7) K/mm3 Sodium 134 L (137-145) mmol/L Potassium 5.0 (3.6-5.0) mmol/L Chloride 98.1 (98-107) mmol/L Carbon Dioxide 24 (22-30) mmol/L Anion Gap 17 mmol/L BUN 17 (9-20) mg/dL Creatinine 0.9 (0.8-1.3) mg/dL Estimated GFR > 60 ml/min BUN/Creatinine Ratio 19 % Glucose 265 H (75-100) mg/dL Calcium 9.2 (8.4-10.2) mg/dL Total Bilirubin 0.30 (0.1-1.2) mg/dL AST 24 (5-40) units/L ALT 25 (7-56) units/L Alkaline Phosphatase 83 (35-129) units/L Troponin T < 0.010 (0.00-0.029) ng/mL Total Protein 7.6 (6.3-8.2) g/dL Albumin 4.2 (3.9-5) g/dL Albumin/Globulin Ratio 1.2 % Lipase 15 (13-60) units/L - Radiology Data Radiology results: report reviewed CHEST 2 VIEWS INDICATION / CLINICAL INFORMATION: dysphagia. COMPARISON: None available. FINDINGS: SUPPORT DEVICES: None. HEART / MEDIASTINUM: No significant abnormality. LUNGS / PLEURA: No significant pulmonary or pleural abnormality. .No pneumothorax. ADDITIONAL FINDINGS: No significant additional findings. IMPRESSION: 1. No acute findings. - Medical Decision Making 59-year-old -[place] male patient with history of GERD, diabetes, and hypertension presents with complaints of epigastric discomfort and feeling like his food is getting stuck with swallowing x this morning. He rates his pain as a 0/10 in severity and denies any chest pain, shortness of breath, palpitations, abdominal swelling, or leg swelling. He states he stopped taking his Prilosec 1 month ago. He denies any heavy alcohol use or nausea/vomiting/diarrhea/melena/hematochezia. Patient also denies any headache, difficulty with speech/ambulation, numbness/tingling/weakness in his limbs, dizziness, or vision changes. No acute abnormalities noted on labs. Patient states his symptoms have resolved with medications given here in ED. Chest x-ray and troponin are normal. He is well-appearing and stable for discharge home. Recommend follow-up with GI. Strict return precautions were discussed in detail with patient who verbalizes understanding Critical care attestation.: If time is entered above; I have spent that time in minutes in the direct care of this critically ill patient, excluding procedure time. ED Disposition Clinical Impression: GERD (gastroesophageal reflux disease) Qualifiers: Esophagitis presence: esophagitis presence not specified Qualified Code(s): K21.9 - Gastro-esophageal reflux disease without esophagitis Disposition: DC-01 TO HOME OR SELFCARE Is pt being admited?: No Condition: Stable Instructions: Gastroesophageal Reflux Disease (ED), Diet for Ulcers and Gastritis (ED) Prescriptions: Pantoprazole [Protonix] 40 mg PO QAM #15 tablet Referrals: [facility] [Provider Group] - 3-5 Days Forms: Work/School Release Form(ED)
--- NOTE | 2020-05-06 14:35 | XRay Report ---
CHEST 2 VIEWS INDICATION / CLINICAL INFORMATION: dysphagia. COMPARISON: None available. FINDINGS: SUPPORT DEVICES: None. HEART / MEDIASTINUM: No significant abnormality. LUNGS / PLEURA: No significant pulmonary or pleural abnormality. .No pneumothorax. ADDITIONAL FINDINGS: No significant additional findings. IMPRESSION: 1. No acute findings. Signer Name: Keanu Espinoza MD Signed: 05/06/2020 2:31 PM Workstation Name: [id number]
[2020-05-06 15:29] LABS: Basophils % (Auto) 0.5 % (0.0-1.8); Eosinophils # (Auto) 0.5 K/mm3 (0.0-0.4); Eosinophils % (Auto) 8.1 % (0.0-4.3); Hematocrit 42.6 % (35.5-45.6); Hemoglobin 13.9 gm/dl (11.8-15.2); Lymphocytes # (Auto) 1.6 K/mm3 (1.2-5.4); Lymphocytes % (Auto) 28.1 % (13.4-35.0); Mean Corpuscular HGB Conc 33 % (32-34); Mean Corpuscular Volume 98 fl (84-94); Monocytes # (Auto) 0.4 K/mm3 (0.0-0.8); Monocytes % (Auto) 7.4 % (0.0-7.3); Platelet Count 188 K/mm3 (140-440); Red Blood Count 4.36 M/mm3 (3.65-5.03)
[2020-05-06 15:47] LABS: Alanine Aminotransferase 25 units/L (7-56); Albumin 4.2 g/dL (3.9-5); BUN/Creatinine Ratio 19; Blood Urea Nitrogen 17 mg/dL (9-20); Calcium 9.2 mg/dL (8.4-10.2); Hemolysis Index 116
== END 2020-05-06 16:37 | disposition home or self-care (01) ==
LOC: ED 11:42
DX: K21.9 Gastro-esophageal reflux disease without esophagitis (principal); E11.9 Type 2 diabetes mellitus without complications; Z98.890 Other specified postprocedural states; Z79.4 Long term (current) use of insulin; Z79.899 Other long term (current) drug therapy
CPT/HCPCS: 36415; 71046; 80053; 83690; 84484; 85025; 93005

== ENCOUNTER 2020-05-13 15:59 | Emergency (ER) | payer BC ==
[2020-05-13 16:17] VITALS: BP 131/72
== END 2020-05-13 16:15 | disposition left against medical advice (07) ==
LOC: ED 15:59
DX: M79.676 Pain in unspecified toe(s) (principal); Z53.21 Procedure and treatment not carried out due to patient leaving prior to being seen by health care provider

== ENCOUNTER 2020-06-04 09:15 | Emergency (ER) | payer BC ==
[2020-06-04 09:43] VITALS: BP 112/60
--- NOTE | 2020-06-04 10:38 | Emergency Department Report ---
Blank Doc - Documentation Documentation: 59-year-old male that presents with uncontrolled DM and left foot pain w/ ulcer. Stated has been taking DM medications as prescribed. This initial assessment/diagnostic orders/clinical plan/treatment(s) is/are subject to change based on patient's health status, clinical progression and re- assessment by fellow clinical providers in the ED. Further treatment and workup at subsequent clinical providers discretion. Patient/guardians urged not to elope from the ED as their condition may be serious if not clinically assessed and managed. Initial orders include: 1- Patient sent to [facility] for further evaluation and treatment 2- labs
[2020-06-04 11:17] LABS: Basophils % (Auto) 0.7 % (0.0-1.8); Eosinophils # (Auto) 0.4 K/mm3 (0.0-0.4); Eosinophils % (Auto) 7.9 % (0.0-4.3); Hematocrit 38.6 % (35.5-45.6); Hemoglobin 12.9 gm/dl (11.8-15.2); Lymphocytes # (Auto) 1.2 K/mm3 (1.2-5.4); Lymphocytes % (Auto) 24.5 % (13.4-35.0); Mean Corpuscular HGB Conc 33 % (32-34); Mean Corpuscular Volume 96 fl (84-94); Monocytes # (Auto) 0.5 K/mm3 (0.0-0.8); Monocytes % (Auto) 10.3 % (0.0-7.3); Platelet Count 220 K/mm3 (140-440); Red Blood Count 4.01 M/mm3 (3.65-5.03); Red Cell Distribution Width 13.2 % (13.2-15.2)
[2020-06-04 11:34] LABS: BUN/Creatinine Ratio 20; Blood Urea Nitrogen 16 mg/dL (9-20); Calcium 8.9 mg/dL (8.4-10.2); Hemolysis Index 5
== END 2020-06-04 13:20 | disposition left against medical advice (07) ==
LOC: ED 09:15
DX: E11.621 Type 2 diabetes mellitus with foot ulcer (principal); Z53.21 Procedure and treatment not carried out due to patient leaving prior to being seen by health care provider
CPT/HCPCS: 36415; 80048; 82805; 82962; 85025

== ENCOUNTER 2020-06-15 13:43 | Emergency (ER) | payer BC ==
[2020-06-15 13:58] VITALS: BP 135/76
--- NOTE | 2020-06-15 16:09 | Emergency Department Report ---
Chief Complaint: Extremity Problem,Nontraumatic Stated Complaint: DIABETIC/FEET/FINGER PAIN Time Seen by Provider: 06/15/20 15:58 - HPI History of Present Illness: Patient is a 59-year-old male who presents emergency room for medication refill. He states that he needs a refill of his gabapentin. He states he was previously getting up from his primary care physician but has not followed back up to receive his gabapentin. He has a history of diabetes and states that he has diabetic neuropathy and that is why he takes the gabapentin. He states he feels a tingling and burning sensation in his bilateral hands and feet. He denies any acute wounds or ulcers. He denies any fall or injury. He denies any other medical problems. He states that he does have his other diabetic medications. Vitals are stable On exam: Non toxic appearing, no acute distress atraumatic, normocephalic normal appearance of the eyes, EOMI, no periorbital edema or ecchymosis moist mucus membranes regular heart rate and rhythm, no gallops, no rubs, no murmurs breath sounds are clear bilaterally, no w/r/r A&O x4, no focal neuro deficit skin is warm, dry Patient is presenting for medication refill He is requesting gabapentin for his chronic history of diabetic neuropathy He denies any acute wounds or ulcers He denies any fall or injury Patient will be referred to primary care physician for chronic management of his diseases Discussed strict return precautions Medical screening examination performed and there is no threat to life or limb this time - Exam Vital Signs: Vital Signs 06/15/20 13:57 Temperature 98.2 F Pulse Rate 70 Respiratory 14 Rate Blood Pressure 135/76 O2 Sat by Pulse 98 Oximetry MSE screening note: Focused history and physical exam performed. ED Disposition for MSE Clinical Impression: Diabetic neuropathy Qualifiers: Diabetes mellitus type: type 2 Diabetes mellitus complication detail: diabetic polyneuropathy Qualified Code(s): E11.42 - Type 2 diabetes mellitus with diabetic polyneuropathy Disposition: MED SCREENING EXAM-LEFT Is pt being admited?: No Does the pt Need Aspirin: No Condition: Stable Instructions: Diabetes Mellitus Type 2 in Adults (ED) Additional Instructions: Please follow-up with a primary care doctor regarding your chronic diabetic neuropathy. Please monitor your blood sugar closely and take your diabetes medications as prescribed by your doctor. Eat a low carbohydrate/low sugar diet. Return to the emergency room immediately for any new or worsening symptoms including but not limited to elevation in your blood sugar, vomiting, fever, wounds or ulcers, etc. Referrals: MAURICE CORTES MD [Staff Physician] - 2-3 Days [facility] [Provider Group] - 2-3 Days IDALIA MCLEAN MD [Staff Physician] - 2-3 Days Forms: Work/School Release Form(ED) Time of Disposition: 16:08 Print Language: UKRAINIAN
== END 2020-06-15 16:29 | disposition left against medical advice (07) ==
LOC: ED 13:43
DX: E11.9 Type 2 diabetes mellitus without complications (principal); Z53.21 Procedure and treatment not carried out due to patient leaving prior to being seen by health care provider

== ENCOUNTER → 2020-06-25 12:19 | Emergency (ER) | payer BC | END | disposition left against medical advice (07) | LOC: ED 12:19 | DX: S61.219A Laceration without foreign body of unspecified finger without damage to nail, initial encounter (principal); Z53.21 Procedure and treatment not carried out due to patient leaving prior to being seen by health care provider; X58.XXXA Exposure to other specified factors, initial encounter; Y93.89 Activity, other specified; Y92.89 Other specified places as the place of occurrence of the external cause; Y99.8 Other external cause status ==

== ENCOUNTER 2020-07-19 01:33 | Emergency (ER) | payer BC ==
[2020-07-19 03:24] VITALS: BP 114/46
== END 2020-07-19 04:30 | disposition left against medical advice (07) ==
LOC: ED 01:33
DX: R73.9 Hyperglycemia, unspecified (principal); Z53.21 Procedure and treatment not carried out due to patient leaving prior to being seen by health care provider
CPT/HCPCS: 82962

== ENCOUNTER 2020-10-10 23:49 | Inpatient (IN) | payer BC, OTHER ==
--- NOTE | 2020-10-11 00:14 | Emergency Department Report ---
ED General Adult HPI - General Stated complaint: HIGH BLOOD SUGAR Time Seen by Provider: 10/11/20 00:07 - History of Present Illness Initial comments: 60-year-old male, history of diabetes, presents to ED with elevated glucose. Patient states he ran out of his insulin today. EMS was called, they report his fingerstick read "high". He denies any fever, nausea, vomiting. -: days(s) (1) Improves with: none Worsens with: none Associated Symptoms: denies: cough, fever/chills, nausea/vomiting - Related Data Previous Rx's Medication Instructions Recorded Last Taken Type Omeprazole 20 mg PO QDAY #20 capsule. 02/25/20 Unknown Rx Insulin Glargine [Lantus VIAL] 30 units SUB-Q QHS #5 pen 02/26/20 Unknown Rx Insulin Regular, Human [HumuLIN R] 10 units SUB-Q AC 30 Days #5 pen 02/26/20 Unknown Rx Syrge-Ndl,Ins 0.5 ml Half Prabhu 1 each ACHS #100 disp.syrin 02/26/20 Unknown Rx [Droplet Insulin Syringe] Pantoprazole [Protonix] 40 mg PO QAM #15 tablet 05/06/20 Unknown Rx Allergies Allergy/AdvReac Type Severity Reaction Status Date / Time No Known Allergies Allergy Verified 05/13/20 16:12 ED Review of Systems ROS: Stated complaint: HIGH BLOOD SUGAR Other details as noted in HPI Comment: All other systems reviewed and negative Constitutional: denies: fever Respiratory: denies: cough Gastrointestinal: denies: nausea, vomiting ED Past Medical Hx - Past Medical History Hx Congestive Heart Failure: No Hx Diabetes: Yes Hx Liver Disease: No Hx Asthma: No Hx COPD: No - Surgical History Additional Surgical History: AMPUTATION OF TOE - Social History Smoking Status: Never Smoker Substance Use Type: None - Medications Home Medications: Home Medications Medication Instructions Recorded Confirmed Last Taken Type Omeprazole 20 mg PO QDAY #20 capsule. 02/25/20 02/25/20 Unknown Rx Insulin Glargine [Lantus VIAL] 30 units SUB-Q QHS #5 pen 02/26/20 Unknown Rx Insulin Regular, Human [HumuLIN R] 10 units SUB-Q AC 30 Days #5 pen 02/26/20 Unknown Rx Syrge-Ndl,Ins 0.5 ml Half Prabhu 1 each ACHS #100 disp.syrin 02/26/20 Unknown Rx [Droplet Insulin Syringe] Pantoprazole [Protonix] 40 mg PO QAM #15 tablet 05/06/20 Unknown Rx ED Physical Exam - General General appearance: alert, in no apparent distress - Head Head exam: Present: atraumatic, normocephalic - Eye Eye exam: Present: normal appearance, EOMI - ENT ENT exam: Present: mucous membranes moist - Neck Neck exam: Present: normal inspection - Respiratory Respiratory exam: Present: normal lung sounds bilaterally. Absent: respiratory distress - Cardiovascular Cardiovascular Exam: Present: regular rate, normal rhythm - GI/Abdominal GI/Abdominal exam: Present: soft. Absent: distended, tenderness - Extremities Exam Extremities exam: Present: normal inspection - Neurological Exam Neurological exam: Present: alert, oriented X3 - Psychiatric Psychiatric exam: Present: normal affect, normal mood - Skin Skin exam: Present: warm, dry, intact, normal color ED Course Vital Signs 10/10/20 10/11/20 10/11/20 23:50 00:21 01:58 Pulse Rate 101 H 97 H Respiratory 21 16 13 Rate Blood Pressure 130/63 114/59 [Right] O2 Sat by Pulse 99 97 98 Oximetry ED Medical Decision Making - Lab Data Result diagrams: 10/11/20 01:09 10/11/20 01:09 - Medical Decision Making 60-year-old male appears to be in mild DKA. Glucose is 464 with a bicarb of 15 and an anion gap of 29. There are small amount of serum ketones present. Venous pH is 7.22. Insulin drip initiated along with administration of IV fluids. Patient will be admitted to hospitalist, Dr. Acuna, for further management. - Differential Diagnosis Hyperglycemia, DKA Critical Care Time: Yes Critical care time in (mins) excluding proc time.: 35 Critical care attestation.: If time is entered above; I have spent that time in minutes in the direct care of this critically ill patient, excluding procedure time. Critical Care Time: 35 min ED Disposition Clinical Impression: DKA (diabetic ketoacidoses) Disposition: OP ADMIT IP TO THIS HOSP Is pt being admited?: Yes Condition: Stable Instructions: Diabetic Ketoacidosis (ED) Referrals: PRIMARY CARE,MD [Primary Care Provider] - 3-5 Days Time of Disposition: 02:39
[2020-10-11] MEDS ORDERED: SODIUM CHLORIDE 0.9% 1000 ML 1,000 ML IV ONE (00:25)
[2020-10-11] MEDS ORDERED: INSULIN REGULAR, HUMAN 100 UNITS/1 ML IV ONE (00:25)
[2020-10-11 01:00] LABS: Bilirubin,Urine NEG (Negative); Blood,Urine SM (Negative); Color,Urine Yellow (Yellow); Mucus,Urine FEW /HPF; Protein,Urine <15 mg/dL mg/dL (Negative); RBC,Urine < 1.0 /HPF (0.0-6.0); Urobilinogen,Urine < 2.0 mg/dL (<2.0)
[2020-10-11 01:34] LABS: Basophils % (Auto) 0.2 % (0.0-1.8); Eosinophils % (Auto) 0.1 % (0.0-4.3); Hemoglobin 12.7 gm/dl (11.8-15.2); Lymphocytes # (Auto) 0.6 K/mm3 (1.2-5.4); Mean Corpuscular HGB Conc 32 % (32-34); Mean Corpuscular Volume 100 fl (84-94); Monocytes # (Auto) 0.5 K/mm3 (0.0-0.8); Platelet Count 219 K/mm3 (140-440); Red Blood Count 4.02 M/mm3 (3.65-5.03); Red Cell Distribution Width 15.4 % (13.2-15.2)
[2020-10-11 02:11] LABS: BUN/Creatinine Ratio 26; Blood Urea Nitrogen 26 mg/dL (9-20); Calcium 8.7 mg/dL (8.4-10.2); Hemolysis Index 5
[2020-10-11] MEDS ORDERED: ONDANSETRON 4 MG/2 ML INJ IV PRN (02:44)
[2020-10-11] MEDS ORDERED: ACETAMINOPHEN 650 MG RECT SUPP PR PRN (02:44)
[2020-10-11] MEDS ORDERED: INSULIN REGULAR, HUMAN 100 UNITS in SODIUM CHLORIDE 0.9% 99 ML IV SCH (03:00)
[2020-10-11] MEDS ORDERED: D5W/0.45% NACL/KCL 20 MEQ 20 MEQ/1,000 ML BAG IV SCH (03:00)
[2020-10-11] MEDS ORDERED: SODIUM CHLORIDE 0.9% 1000 ML 1,000 ML IV SCH (03:00)
--- NOTE | 2020-10-11 03:00 | History and Physical Report ---
History of Present Illness Date of examination: 10/11/20 Date of admission: 10/11/2020 Chief complaint: elevated BG History of present illness: 60-year-old -[place] homeless male with history of uncontrolled insulin- dependent diabetes with neuropathy, and GERD who presents to [facility] ED via EMS with complaints of elevated blood glucose levels. Patient states he was in the parking lot of [employer] on [address] and felt like his blood sugar was high so he called EMS for further evaluation and transport to the nearest emergency room. Upon arrival to the ED patient was found to be in DKA with serum blood glucose of 464, anion gap 29, urine positive for ketones, VBG 7.223. DKA protocol initiated and patient started on insulin drip. Review of medical record shows patient was last seen in the ED in May 2020 for elevated blood glucose level. He was treated and discharged. He was last admitted in January 2020 for DKA. Pt is homeless and has limited resources and access to meds. He is requesting to speak with a Dietitian. Denies n/v/d, constipation, fever, chills, sore throat, loss of smell, loss of taste, abdominal pain, or recent sick contacts Past History Past Medical History: diabetes (With neuropathy), GERD Past Surgical History: Other (AMPUTATION OF RIGHT GREAT TOE ) Social history: full code, other (Homeless, smokes crack, social drinker). denies: smoking, prescription drug abuse, IV drug use Family history: no significant family history Medications and Allergies Allergies Allergy/AdvReac Type Severity Reaction Status Date / Time No Known Allergies Allergy Verified 05/13/20 16:12 Home Medications Medication Instructions Recorded Confirmed Last Taken Type Omeprazole 20 mg PO QDAY #20 capsule. 02/25/20 02/25/20 Unknown Rx Insulin Glargine [Lantus VIAL] 30 units SUB-Q QHS #5 pen 02/26/20 Unknown Rx Insulin Regular, Human [HumuLIN R] 10 units SUB-Q AC 30 Days #5 pen 02/26/20 Unknown Rx Syrge-Ndl,Ins 0.5 ml Half Prabhu 1 each ACHS #100 disp.syrin 02/26/20 Unknown Rx [Droplet Insulin Syringe] Pantoprazole [Protonix] 40 mg PO QAM #15 tablet 05/06/20 Unknown Rx Active Meds: Active Medications Acetaminophen (Acetaminophen 650 Mg Rect Supp) 650 mg MS Q4H PRN PRN Reason: Pain MILD(1-3)/Fever >100.5/KOHLI Heparin Sodium (Porcine) (Heparin 5,000 Unit/1 Ml Vial) 5,000 unit SUB-Q Q12HR RADHA Insulin Human Regular 100 (units/ Sodium Chloride) 100 mls @ 1 mls/hr IV TITR RADHA; Protocol Potassium Chloride/Dextrose/Sod Cl (D5w/0.45% Nacl/Kcl 20 Meq) 20 meq in 1,000 mls @ 125 mls/hr IV DIRECT RADHA Sodium Chloride (Nacl 0.9% 1000 Ml) 1,000 mls @ 125 mls/hr IV DIRECT RADHA Ondansetron HCl (Ondansetron 4 Mg/2 Ml Inj) 4 mg IV Q6H PRN PRN Reason: Nausea And Vomiting Pantoprazole Sodium (Pantoprazole 40 Mg Inj) 40 mg IV QDAY RADHA Sodium Chloride (Sodium Chloride 0.9% 10 Ml Flush Syringe) 10 ml IV BID RADHA Sodium Chloride (Sodium Chloride 0.9% 10 Ml Flush Syringe) 10 ml IV PRN PRN PRN Reason: LINE FLUSH Review of Systems All systems: negative (As noted in HPI) Exam - Physical Exam Narrative exam: Physical exam General appearance: Present: No acute distress, alert and oriented 3, adult male - EENT Eyes: Present: PERRL, EOM intact ENT: hearing intact, missing teeth - Neck Neck: Present: supple, normal ROM - Respiratory Respiratory effort: Non-labored Respiratory: Clear throughout - Cardiovascular Heart rate: 98 (bpm) Rhythm: Sinus Heart Sounds: Present: S1 & S2. Absent: rub, click - Extremities Extremities: no ischemia, pulses intact, right great toe amputation - Peripheral Assessment Peripheral Pulses: within normal limits - Abdominal General gastrointestinal: soft, non-tender, normal bowel sounds - Integumentary Integumentary: Present: warm, dry - Musculoskeletal Musculoskeletal: Able to move all extremities -Neurological Neurological: CN II-XII intact - Psychiatric Psychiatric: cooperative - Constitutional Vitals: Temp Pulse Resp BP Pulse Ox 97 H 13 114/59 98 10/11/20 01:58 10/11/20 01:58 10/11/20 01:58 10/11/20 01:58 Results - Labs CBC & Chem 7: 10/11/20 01:09 10/11/20 01:09 Labs: Laboratory Last Values WBC 9.8 K/mm3 (4.5-11.0) 10/11/20 01:09 RBC 4.02 M/mm3 (3.65-5.03) 10/11/20 01:09 Hgb 12.7 gm/dl (11.8-15.2) 10/11/20 01:09 Hct 40.0 % (35.5-45.6) 10/11/20 01:09 MCV 100 fl (84-94) H 10/11/20 01:09 MCH 32 pg (28-32) 10/11/20 01:09 MCHC 32 % (32-34) 10/11/20 01:09 RDW 15.4 % (13.2-15.2) H 10/11/20 01:09 Plt Count 219 K/mm3 (140-440) 10/11/20 01:09 Lymph % (Auto) 6.0 % (13.4-35.0) L 10/11/20 01:09 [place] % (Auto) 5.0 % (0.0-7.3) 10/11/20 01:09 Eos % (Auto) 0.1 % (0.0-4.3) 10/11/20 01:09 Baso % (Auto) 0.2 % (0.0-1.8) 10/11/20 01:09 Lymph # (Auto) 0.6 K/mm3 (1.2-5.4) L 10/11/20 01:09 [place] # (Auto) 0.5 K/mm3 (0.0-0.8) 10/11/20 01:09 Eos # (Auto) 0.0 K/mm3 (0.0-0.4) 10/11/20 01:09 Baso # (Auto) 0.0 K/mm3 (0.0-0.1) 10/11/20 01:09 Seg Neutrophils % 88.7 % (40.0-70.0) H 10/11/20 01:09 Seg Neutrophils # 8.7 K/mm3 (1.8-7.7) H 10/11/20 01:09 VBG pH 7.223 (7.320-7.420) L 10/11/20 01:09 Sodium 134 mmol/L (137-145) L 10/11/20 01:09 Potassium 4.9 mmol/L (3.6-5.0) 10/11/20 01:09 Chloride 95.3 mmol/L (98-107) L 10/11/20 01:09 Carbon Dioxide 15 mmol/L (22-30) L 10/11/20 01:09 Anion Gap 29 mmol/L 10/11/20 01:09 BUN 26 mg/dL (9-20) H 10/11/20 01:09 Creatinine 1.0 mg/dL (0.8-1.3) 10/11/20 01:09 Estimated GFR > 60 ml/min 10/11/20 01:09 BUN/Creatinine Ratio 26 % 10/11/20 01:09 Glucose 464 mg/dL (75-100) H 10/11/20 01:09 Ketones Quantitative Small (Negative) 10/11/20 01:09 Calcium 8.7 mg/dL (8.4-10.2) 10/11/20 01:09 Urine Color Yellow (Yellow) 10/11/20 00:34 Urine Turbidity Clear (Clear) 10/11/20 00:34 Urine pH 5.0 (5.0-7.0) 10/11/20 00:34 Ur Specific [place] 1.021 (1.003-1.030) 10/11/20 00:34 Urine Protein <15 mg/dl mg/dL (Negative) 10/11/20 00:34 Urine Glucose (UA) >=500 mg/dL (Negative) 10/11/20 00:34 Urine Ketones 20 mg/dL (Negative) 10/11/20 00:34 Urine Blood Sm (Negative) 10/11/20 00:34 Urine Nitrite Neg (Negative) 10/11/20 00:34 Urine Bilirubin Neg (Negative) 10/11/20 00:34 Urine Urobilinogen < 2.0 mg/dL (<2.0) 10/11/20 00:34 Ur Leukocyte Esterase Neg (Negative) 10/11/20 00:34 Urine WBC (Auto) 1.0 /HPF (0.0-6.0) 10/11/20 00:34 Urine RBC (Auto) < 1.0 /HPF (0.0-6.0) 10/11/20 00:34 U Epithel Cells (Auto) < 1.0 /HPF (0-13.0) 10/11/20 00:34 Urine Mucus Few /HPF 10/11/20 00:34 Assessment and Plan Assessment and plan: DKA -Blood glucose on admission 464, urine positive for ketones, VBG 7.23, anion gap 29 -Initiate DKA protocol -Continue supportive care -POC BG monitoring per DKA protocol -Hydrate with IVF -On insulin gtt -Monitor labs DM -history of uncontrolled IDDM -With neuropathy -limited access to care d/t lack of access to care and uninsured -HgbA1C pending Homelessness -Pt is homeless -Social work consult placed Illicit drug use -Reports smoking crack -Last used on 10/09/2020 -Counseled for cessation GERD -On Protonix DVT PPX -On Heparin and SCD's Advance Directives: No VTE prophylaxis?: Chemical, Mechanical Plan of care discussed with patient/family: Yes
[2020-10-11 03:47] LABS: BUN/Creatinine Ratio 26; Blood Urea Nitrogen 26 mg/dL (9-20); Calcium 8.8 mg/dL (8.4-10.2); Hemolysis Index 1
[2020-10-11 04:56] LABS: BUN/Creatinine Ratio 28; Blood Urea Nitrogen 25 mg/dL (9-20); Calcium 8.2 mg/dL (8.4-10.2); Hemolysis Index 17
[2020-10-11 07:47] LABS: BUN/Creatinine Ratio 23; Blood Urea Nitrogen 23 mg/dL (9-20); Calcium 8.7 mg/dL (8.4-10.2); Hemolysis Index 6
--- NOTE | 2020-10-11 09:05 | Progress Note ---
Assessment and Plan Assessment and plan: --Diabetic ketoacidosis; present on admission On DKA pathway, insulin drip Blood sugars reasonable level Anion gap closing, acidosis improved Start ADA diet, DC insulin drip HbA1c 11.1 Change Accu-Cheks to q. ACH S Transition to long-acting 70/30 Novolin Diabetic education, diabetic diet education prior to discharge Change IV fluids to normal saline Possible home health nurse for disease monitoring --History of type II DM insulin-dependent Noncompliant, uncontrolled Due to social and financial reasons Case management for assistance at discharge --History of recreational drug use. Patient strongly advised to quit recreational drug use --GERD; Protonix --Medical noncompliance; Patient reports that he does not have insurance because he does not have a job and cannot afford the medications Strongly encouraged to comply with medications diet and follow-up visits We will give prescriptions with generic names from stores with affordable prices --Patient reports that he is homeless --DC planning per case management Will downgrade the patient to telemetry we will closely monitor the patient and adjust the management as needed Plan of care reviewed with patient and his nurse Advance Directives: No VTE prophylaxis?: Chemical, Mechanical Plan of care discussed with patient/family: Yes Health care time 40 minutes History Interval history: I have seen and examined the patient in ICU this morning Patient's chart and medications reviewed Admitted with diabetic ketoacidosis, on DKA pathway On insulin drip, blood sugars reasonable level Anion gap closing. Acidosis improved Patient is alert and awake asking for food Vital signs reviewed Hospitalist Physical - Constitutional Vitals: Temp Pulse Resp BP Pulse Ox 98.9 F 91 H 12 117/63 98 10/11/20 04:59 10/11/20 05:16 10/11/20 05:16 10/11/20 05:16 10/11/20 05:16 General appearance: Present: no acute distress, well-nourished - EENT Eyes: Present: PERRL, EOM intact - Neck Neck: Present: supple, normal ROM - Respiratory Respiratory effort: normal Respiratory: bilateral: diminished, negative: rales, rhonchi, wheezing - Cardiovascular Rhythm: regular Heart Sounds: Present: S1 & S2 - Extremities Extremities: no ischemia, No edema - Abdominal General gastrointestinal: soft, non-tender, non-distended, normal bowel sounds - Integumentary Integumentary: Present: clear, warm - Psychiatric Psychiatric: appropriate mood/affect, cooperative - Neurologic Neurologic: CNII-XII intact, moves all extremities Results - Labs CBC & Chem 7: 10/11/20 01:09 10/11/20 10:16 Labs: Laboratory Last Values WBC 9.8 K/mm3 (4.5-11.0) 10/11/20 01:09 RBC 4.02 M/mm3 (3.65-5.03) 10/11/20 01:09 Hgb 12.7 gm/dl (11.8-15.2) 10/11/20 01:09 Hct 40.0 % (35.5-45.6) 10/11/20 01:09 MCV 100 fl (84-94) H 10/11/20 01:09 MCH 32 pg (28-32) 10/11/20 01:09 MCHC 32 % (32-34) 10/11/20 01:09 RDW 15.4 % (13.2-15.2) H 10/11/20 01:09 Plt Count 219 K/mm3 (140-440) 10/11/20 01:09 Lymph % (Auto) 6.0 % (13.4-35.0) L 10/11/20 01:09 [place] % (Auto) 5.0 % (0.0-7.3) 10/11/20 01:09 Eos % (Auto) 0.1 % (0.0-4.3) 10/11/20 01:09 Baso % (Auto) 0.2 % (0.0-1.8) 10/11/20 01:09 Lymph # (Auto) 0.6 K/mm3 (1.2-5.4) L 10/11/20 01:09 [place] # (Auto) 0.5 K/mm3 (0.0-0.8) 10/11/20 01:09 Eos # (Auto) 0.0 K/mm3 (0.0-0.4) 10/11/20 01:09 Baso # (Auto) 0.0 K/mm3 (0.0-0.1) 10/11/20 01:09 Seg Neutrophils % 88.7 % (40.0-70.0) H 10/11/20 01:09 Seg Neutrophils # 8.7 K/mm3 (1.8-7.7) H 10/11/20 01:09 VBG pH 7.223 (7.320-7.420) L 10/11/20 01:09 Sodium 138 mmol/L (137-145) 10/11/20 06:32 Potassium 4.3 mmol/L (3.6-5.0) 10/11/20 06:32 Chloride 102.5 mmol/L (98-107) 10/11/20 06:32 Carbon Dioxide 20 mmol/L (22-30) L 10/11/20 06:32 Anion Gap 20 mmol/L 10/11/20 06:32 BUN 23 mg/dL (9-20) H 10/11/20 06:32 Creatinine 1.0 mg/dL (0.8-1.3) 10/11/20 06:32 Estimated GFR > 60 ml/min 10/11/20 06:32 BUN/Creatinine Ratio 23 % 10/11/20 06:32 Glucose 225 mg/dL (75-100) H 10/11/20 06:32 POC Glucose 187 mg/dL (70-105) H 10/11/20 06:51 Hemoglobin A1c 11.1 % (4-6) H 10/11/20 03:53 Ketones Quantitative Small (Negative) 10/11/20 01:09 Calcium 8.7 mg/dL (8.4-10.2) 10/11/20 06:32 Phosphorus 3.50 mg/dL (2.5-4.5) 10/11/20 02:57 Magnesium 2.10 mg/dL (1.7-2.3) 10/11/20 02:57 Urine Color Yellow (Yellow) 10/11/20 00:34 Urine Turbidity Clear (Clear) 10/11/20 00:34 Urine pH 5.0 (5.0-7.0) 10/11/20 00:34 Ur Specific [place] 1.021 (1.003-1.030) 10/11/20 00:34 Urine Protein <15 mg/dl mg/dL (Negative) 10/11/20 00:34 Urine Glucose (UA) >=500 mg/dL (Negative) 10/11/20 00:34 Urine Ketones 20 mg/dL (Negative) 10/11/20 00:34 Urine Blood Sm (Negative) 10/11/20 00:34 Urine Nitrite Neg (Negative) 10/11/20 00:34 Urine Bilirubin Neg (Negative) 10/11/20 00:34 Urine Urobilinogen < 2.0 mg/dL (<2.0) 10/11/20 00:34 Ur Leukocyte Esterase Neg (Negative) 10/11/20 00:34 Urine WBC (Auto) 1.0 /HPF (0.0-6.0) 10/11/20 00:34 Urine RBC (Auto) < 1.0 /HPF (0.0-6.0) 10/11/20 00:34 U Epithel Cells (Auto) < 1.0 /HPF (0-13.0) 10/11/20 00:34 Urine Mucus Few /HPF 10/11/20 00:34 [place]/IV: Voiding Method Toilet Active Medications - Current Medications Current Medications: Generic Name Dose Route Start Last Admin Trade Name Freq PRN Reason Stop Dose Admin Acetaminophen 650 mg 10/11/20 02:44 Acetaminophen 650 Mg Rect Supp MS Q4H PRN Pain MILD(1-3)/Fever >100.5/KOHLI Heparin Sodium (Porcine) 5,000 unit 10/11/20 10:00 Heparin 5,000 Unit/1 Ml Vial SUB-Q Q12HR RADHA Insulin Human Regular 100 100 mls @ 1 mls/hr 10/11/20 03:00 10/11/20 06:55 units/ Sodium Chloride IV 3 units/hr TITR RADHA 3 mls/hr Titration Protocol 1 UNITS/HR Potassium Chloride/Dextrose/Sod Cl 20 meq in 1,000 mls @ 125 mls/hr 10/11/20 03:00 10/11/20 06:00 D5w/0.45% Nacl/Kcl 20 Meq IV 125 mls/hr DIRECT RADHA Administration Sodium Chloride 1,000 mls @ 125 mls/hr 10/11/20 03:00 10/11/20 06:00 Nacl 0.9% 1000 Ml IV 0 mls/hr DIRECT RADHA Infusion Ondansetron HCl 4 mg 10/11/20 02:44 Ondansetron 4 Mg/2 Ml Inj IV Q6H PRN Nausea And Vomiting Pantoprazole Sodium 40 mg 10/11/20 10:00 Pantoprazole 40 Mg Inj IV QDAY RADHA Sodium Chloride 10 ml 10/11/20 10:00 Sodium Chloride 0.9% 10 Ml Flush Syringe IV BID RADHA Sodium Chloride 10 ml 10/11/20 02:44 Sodium Chloride 0.9% 10 Ml Flush Syringe IV PRN PRN LINE FLUSH
[2020-10-11 11:04] LABS: BUN/Creatinine Ratio 21; Blood Urea Nitrogen 19 mg/dL (9-20); Calcium 8.5 mg/dL (8.4-10.2); Hemolysis Index 2
[2020-10-11] MEDS: HEPARIN 5,000 UNIT/1 ML VIAL SUB-Q SCH ×2 (11:16→21:54)
[2020-10-11] MEDS: PANTOPRAZOLE 40 MG INJ IV SCH (11:17)
--- NOTE | 2020-10-11 11:56 | Event Note ---
Date: 10/11/20 Anion Gap closed, No further indication for ICU care. Will sign off.
[2020-10-11] MEDS ORDERED: INSULIN NPH/REGULAR 70/30 INJ SUB-Q SCH (17:00)
[2020-10-11] MEDS: INSULIN LISPRO 100 UNIT/ML SUB-Q SCH ×2 (17:12→21:54)
[2020-10-11 18:27] LABS: BUN/Creatinine Ratio 22; Blood Urea Nitrogen 22 mg/dL (9-20); Calcium 8.5 mg/dL (8.4-10.2); Hemolysis Index 11
[2020-10-12 05:56] LABS: BUN/Creatinine Ratio 19; Blood Urea Nitrogen 15 mg/dL (9-20); Hemolysis Index 6
[2020-10-12] MEDS: INSULIN NPH/REGULAR 70/30 INJ SUB-Q SCH ×2 (08:10→17:10)
[2020-10-12] MEDS: INSULIN LISPRO 100 UNIT/ML SUB-Q SCH ×4 (08:10→22:06)
--- NOTE | 2020-10-12 08:53 | Progress Note ---
Assessment and Plan Assessment and plan: --Diabetic ketoacidosis; present on admission S/P DKA pathway,S/P insulin drip HbA1c 11.1 Accu-Chek sliding scale coverage ADA diet, On long-acting 70/30 Novolin,Diabetic education diabetic diet education prior to discharge Change IV fluids to normal saline Possible home health nurse for disease monitoring --History of type II DM insulin-dependent uncontrolled Continue Accu-Chek sliding scale coverage ADA diet Increase 70/30 insulin dose as needed, Diabetic education Possible discharge home tomorrow if stable --History of recreational drug use. Patient strongly advised to quit recreational drug use --GERD; Protonix --Medical noncompliance; Patient reports that he does not have insurance because he does not have a job and cannot afford the medications Strongly encouraged to comply with medications diet and follow-up visits We will give prescriptions with generic names from stores with affordable prices --Patient reports that he is homeless --DC planning per case management we will closely monitor the patient and adjust the management as needed Plan of care reviewed with patient and his nurse Possible discharge tomorrow if stable DC planning per case management Patient reports that he is homeless Advance Directives: No VTE prophylaxis?: Chemical, Mechanical Plan of care discussed with patient/family: Yes Possible discharge tomorrow if stable History Interval history: I seen and examined the patient at the bedside Patient was admitted with DKA received insulin drip transition to long-acting insulin Blood sugars are reasonable level in 200s Patient has no new complaints Vital signs noted Hospitalist Physical - Constitutional Vitals: Temp Pulse Resp BP Pulse Ox 97.0 F L 86 17 101/56 95 10/11/20 23:37 10/11/20 23:37 10/11/20 23:37 10/11/20 23:37 10/11/20 23:37 General appearance: Present: no acute distress, well-nourished - EENT Eyes: Present: PERRL, EOM intact - Neck Neck: Present: supple, normal ROM - Respiratory Respiratory effort: normal Respiratory: bilateral: diminished, negative: rales, rhonchi, wheezing - Cardiovascular Rhythm: regular Heart Sounds: Present: S1 & S2 - Extremities Extremities: no ischemia, No edema - Abdominal General gastrointestinal: soft, non-tender, non-distended, normal bowel sounds - Integumentary Integumentary: Present: clear, warm - Psychiatric Psychiatric: appropriate mood/affect, cooperative - Neurologic Neurologic: CNII-XII intact, moves all extremities Results - Labs CBC & Chem 7: 10/11/20 01:09 10/12/20 05:15 Labs: Laboratory Last Values WBC 9.8 K/mm3 (4.5-11.0) 10/11/20 01:09 RBC 4.02 M/mm3 (3.65-5.03) 10/11/20 01:09 Hgb 12.7 gm/dl (11.8-15.2) 10/11/20 01:09 Hct 40.0 % (35.5-45.6) 10/11/20 01:09 MCV 100 fl (84-94) H 10/11/20 01:09 MCH 32 pg (28-32) 10/11/20 01:09 MCHC 32 % (32-34) 10/11/20 01:09 RDW 15.4 % (13.2-15.2) H 10/11/20 01:09 Plt Count 219 K/mm3 (140-440) 10/11/20 01:09 Lymph % (Auto) 6.0 % (13.4-35.0) L 10/11/20 01:09 [place] % (Auto) 5.0 % (0.0-7.3) 10/11/20 01:09 Eos % (Auto) 0.1 % (0.0-4.3) 10/11/20 01:09 Baso % (Auto) 0.2 % (0.0-1.8) 10/11/20 01:09 Lymph # (Auto) 0.6 K/mm3 (1.2-5.4) L 10/11/20 01:09 [place] # (Auto) 0.5 K/mm3 (0.0-0.8) 10/11/20 01:09 Eos # (Auto) 0.0 K/mm3 (0.0-0.4) 10/11/20 01:09 Baso # (Auto) 0.0 K/mm3 (0.0-0.1) 10/11/20 01:09 Seg Neutrophils % 88.7 % (40.0-70.0) H 10/11/20 01:09 Seg Neutrophils # 8.7 K/mm3 (1.8-7.7) H 10/11/20 01:09 VBG pH 7.223 (7.320-7.420) L 10/11/20 01:09 Sodium 133 mmol/L (137-145) L 10/12/20 05:15 Potassium 4.3 mmol/L (3.6-5.0) 10/12/20 05:15 Chloride 101.5 mmol/L (98-107) 10/12/20 05:15 Carbon Dioxide 25 mmol/L (22-30) 10/12/20 05:15 Anion Gap 11 mmol/L 10/12/20 05:15 BUN 15 mg/dL (9-20) 10/12/20 05:15 Creatinine 0.8 mg/dL (0.8-1.3) 10/12/20 05:15 Estimated GFR > 60 ml/min 10/12/20 05:15 BUN/Creatinine Ratio 19 % 10/12/20 05:15 Glucose 373 mg/dL (75-100) H 10/12/20 05:15 POC Glucose 335 mg/dL (70-105) H 10/11/20 16:30 Hemoglobin A1c 11.1 % (4-6) H 10/11/20 03:53 Ketones Quantitative Small (Negative) 10/11/20 01:09 Calcium 8.0 mg/dL (8.4-10.2) L 10/12/20 05:15 Phosphorus 2.50 mg/dL (2.5-4.5) D 10/12/20 05:15 Magnesium 1.60 mg/dL (1.7-2.3) L 10/12/20 05:15 Urine Color Yellow (Yellow) 10/11/20 00:34 Urine Turbidity Clear (Clear) 10/11/20 00:34 Urine pH 5.0 (5.0-7.0) 10/11/20 00:34 Ur Specific [place] 1.021 (1.003-1.030) 10/11/20 00:34 Urine Protein <15 mg/dl mg/dL (Negative) 10/11/20 00:34 Urine Glucose (UA) >=500 mg/dL (Negative) 10/11/20 00:34 Urine Ketones 20 mg/dL (Negative) 10/11/20 00:34 Urine Blood Sm (Negative) 10/11/20 00:34 Urine Nitrite Neg (Negative) 10/11/20 00:34 Urine Bilirubin Neg (Negative) 10/11/20 00:34 Urine Urobilinogen < 2.0 mg/dL (<2.0) 10/11/20 00:34 Ur Leukocyte Esterase Neg (Negative) 10/11/20 00:34 Urine WBC (Auto) 1.0 /HPF (0.0-6.0) 10/11/20 00:34 Urine RBC (Auto) < 1.0 /HPF (0.0-6.0) 10/11/20 00:34 U Epithel Cells (Auto) < 1.0 /HPF (0-13.0) 10/11/20 00:34 Urine Mucus Few /HPF 10/11/20 00:34 Mars/IV: Voiding Method Toilet Active Medications - Current Medications Current Medications: Generic Name Dose Route Start Last Admin Trade Name Freq PRN Reason Stop Dose Admin Acetaminophen 650 mg 10/11/20 02:44 Acetaminophen 650 Mg Rect Supp [place] Q4H PRN Pain MILD(1-3)/Fever >100.5/KOHLI Heparin Sodium (Porcine) 5,000 unit 10/11/20 10:00 10/11/20 21:54 Heparin 5,000 Unit/1 Ml Vial SUB-Q 5,000 unit Q12HR RADHA Administration Sodium Chloride 1,000 mls @ 125 mls/hr 10/11/20 03:00 10/11/20 06:00 Nacl 0.9% 1000 Ml IV 0 mls/hr DIRECT RADHA Infusion Magnesium Sulfate 2 gm in 50 mls @ 25 mls/hr 10/12/20 08:50 Magnesium Sulfate 2gm/50ml IV 10/12/20 10:49 ONCE ONE Insulin Human Isoph/Insulin Regular 18 unit 10/12/20 08:00 10/12/20 08:10 Insulin Nph/Regular 70/30 Inj SUB-Q 18 unit BIDDIAB RADHA Administration Insulin Human Lispro 0 unit 10/11/20 16:30 10/12/20 08:10 Insulin Lispro 100 Unit/Ml SUB-Q 8 unit ACHS RADHA Administration Protocol Ondansetron HCl 4 mg 10/11/20 02:44 Ondansetron 4 Mg/2 Ml Inj IV Q6H PRN Nausea And Vomiting Pantoprazole Sodium 40 mg 10/11/20 10:00 10/11/20 11:17 Pantoprazole 40 Mg Inj IV Not Given QDAY RADHA Sodium Chloride 10 ml 10/11/20 10:00 10/11/20 21:55 Sodium Chloride 0.9% 10 Ml Flush Syringe IV 10 ml BID RADHA Administration Sodium Chloride 10 ml 10/11/20 02:44 Sodium Chloride 0.9% 10 Ml Flush Syringe IV PRN PRN LINE FLUSH Nutrition/Malnutrition Assess - Dietary Evaluation Nutrition/Malnutrition Findings: Nutrition Notes Start: 10/11/20 09:37 Freq: Status: Active Protocol: Document 10/11/20 09:38 LP (Rec: 10/11/20 09:39 LP [email or web address]) Nutrition Notes Need for Assessment generated from: MD Order Initial or Follow up Brief Note Current Diagnosis Diabetes Other Pertinent Diagnosis DKA Labs/Tests A1c 11.1 Subjective/Other Information Consult for diet education. Pt in ED. Nutrition Intervention Follow-Up By: 10/12/20 Additional Comments Follow for diet education
[2020-10-12] MEDS ORDERED: MAGNESIUM SULFATE 2 GM/50 ML BAG IV ONE (10:00)
[2020-10-12] MEDS: HEPARIN 5,000 UNIT/1 ML VIAL SUB-Q SCH ×2 (10:50→22:08)
[2020-10-12] MEDS: PANTOPRAZOLE 40 MG INJ IV SCH (10:51)
[2020-10-13] MEDS ORDERED: PANTOPRAZOLE 40 MG TAB PO SCH (07:30)
[2020-10-13] MEDS: INSULIN NPH/REGULAR 70/30 INJ SUB-Q SCH ×2 (08:11→16:30)
[2020-10-13] MEDS: INSULIN LISPRO 100 UNIT/ML SUB-Q SCH ×3 (08:18→16:31)
[2020-10-13] MEDS: HEPARIN 5,000 UNIT/1 ML VIAL SUB-Q SCH (09:08)
--- NOTE | 2020-10-13 10:54 | Progress Note ---
Assessment and Plan Assessment and plan: --Diabetic ketoacidosis; present on admission S/P DKA pathway,S/P insulin drip HbA1c 11.1 Accu-Chek sliding scale coverage ADA diet, On long-acting 70/30 Novolin,Diabetic education diabetic diet education prior to discharge Change IV fluids to normal saline Possible home health nurse for disease monitoring --History of type II DM insulin-dependent uncontrolled Continue Accu-Chek sliding scale coverage ADA diet Increase 70/30 insulin dose as needed, Diabetic education Possible discharge home tomorrow if stable --History of recreational drug use. Patient strongly advised to quit recreational drug use --GERD; Protonix --Medical noncompliance; Patient reports that he does not have insurance because he does not have a job and cannot afford the medications Strongly encouraged to comply with medications diet and follow-up visits We will give prescriptions with generic names from stores with affordable prices --Patient reports that he is homeless --DC planning per case management we will closely monitor the patient and adjust the management as needed Plan of care reviewed with patient and his nurse Possible discharge tomorrow if stable DC planning per case management Patient reports that he is homeless Advance Directives: No VTE prophylaxis?: Chemical, Mechanical Plan of care discussed with patient/family: Yes Possible discharge tomorrow if stable Hospitalist Physical - Constitutional Vitals: Temp Pulse Resp BP Pulse Ox 98.4 F 81 18 124/70 98 10/13/20 08:02 10/13/20 08:25 10/13/20 08:33 10/13/20 08:02 10/13/20 08:33 General appearance: Present: no acute distress, well-nourished Results - Labs CBC & Chem 7: 10/11/20 01:09 10/12/20 05:15 Labs: Laboratory Last Values WBC 9.8 K/mm3 (4.5-11.0) 10/11/20 01:09 RBC 4.02 M/mm3 (3.65-5.03) 10/11/20 01:09 Hgb 12.7 gm/dl (11.8-15.2) 10/11/20 01:09 Hct 40.0 % (35.5-45.6) 10/11/20 01:09 MCV 100 fl (84-94) H 10/11/20 01:09 MCH 32 pg (28-32) 10/11/20 01:09 MCHC 32 % (32-34) 10/11/20 01:09 RDW 15.4 % (13.2-15.2) H 10/11/20 01:09 Plt Count 219 K/mm3 (140-440) 10/11/20 01:09 Lymph % (Auto) 6.0 % (13.4-35.0) L 10/11/20 01:09 [place] % (Auto) 5.0 % (0.0-7.3) 10/11/20 01:09 Eos % (Auto) 0.1 % (0.0-4.3) 10/11/20 01:09 Baso % (Auto) 0.2 % (0.0-1.8) 10/11/20 01:09 Lymph # (Auto) 0.6 K/mm3 (1.2-5.4) L 10/11/20 01:09 [place] # (Auto) 0.5 K/mm3 (0.0-0.8) 10/11/20 01:09 Eos # (Auto) 0.0 K/mm3 (0.0-0.4) 10/11/20 01:09 Baso # (Auto) 0.0 K/mm3 (0.0-0.1) 10/11/20 01:09 Seg Neutrophils % 88.7 % (40.0-70.0) H 10/11/20 01:09 Seg Neutrophils # 8.7 K/mm3 (1.8-7.7) H 10/11/20 01:09 VBG pH 7.223 (7.320-7.420) L 10/11/20 01:09 Sodium 133 mmol/L (137-145) L 10/12/20 05:15 Potassium 4.3 mmol/L (3.6-5.0) 10/12/20 05:15 Chloride 101.5 mmol/L (98-107) 10/12/20 05:15 Carbon Dioxide 25 mmol/L (22-30) 10/12/20 05:15 Anion Gap 11 mmol/L 10/12/20 05:15 BUN 15 mg/dL (9-20) 10/12/20 05:15 Creatinine 0.8 mg/dL (0.8-1.3) 10/12/20 05:15 Estimated GFR > 60 ml/min 10/12/20 05:15 BUN/Creatinine Ratio 19 % 10/12/20 05:15 Glucose 373 mg/dL (75-100) H 10/12/20 05:15 POC Glucose 574 mg/dL (70-105) H 10/13/20 08:07 Hemoglobin A1c 11.1 % (4-6) H 10/11/20 03:53 Ketones Quantitative Small (Negative) 10/11/20 01:09 Calcium 8.0 mg/dL (8.4-10.2) L 10/12/20 05:15 Phosphorus 2.50 mg/dL (2.5-4.5) D 10/12/20 05:15 Magnesium 1.60 mg/dL (1.7-2.3) L 10/12/20 05:15 Urine Color Yellow (Yellow) 10/11/20 00:34 Urine Turbidity Clear (Clear) 10/11/20 00:34 Urine pH 5.0 (5.0-7.0) 10/11/20 00:34 Ur Specific [place] 1.021 (1.003-1.030) 10/11/20 00:34 Urine Protein <15 mg/dl mg/dL (Negative) 10/11/20 00:34 Urine Glucose (UA) >=500 mg/dL (Negative) 10/11/20 00:34 Urine Ketones 20 mg/dL (Negative) 10/11/20 00:34 Urine Blood Sm (Negative) 10/11/20 00:34 Urine Nitrite Neg (Negative) 10/11/20 00:34 Urine Bilirubin Neg (Negative) 10/11/20 00:34 Urine Urobilinogen < 2.0 mg/dL (<2.0) 10/11/20 00:34 Ur Leukocyte Esterase Neg (Negative) 10/11/20 00:34 Urine WBC (Auto) 1.0 /HPF (0.0-6.0) 10/11/20 00:34 Urine RBC (Auto) < 1.0 /HPF (0.0-6.0) 10/11/20 00:34 U Epithel Cells (Auto) < 1.0 /HPF (0-13.0) 10/11/20 00:34 Urine Mucus Few /HPF 10/11/20 00:34 Mars/IV: Voiding Method Toilet Active Medications - Current Medications Current Medications: Generic Name Dose Route Start Last Admin Trade Name Freq PRN Reason Stop Dose Admin Acetaminophen 650 mg 10/11/20 02:44 Acetaminophen 650 Mg Rect Supp [place] Q4H PRN Pain MILD(1-3)/Fever >100.5/KOHLI Heparin Sodium (Porcine) 5,000 unit 10/11/20 10:00 10/13/20 09:08 Heparin 5,000 Unit/1 Ml Vial SUB-Q 5,000 unit Q12HR RADHA Administration Sodium Chloride 1,000 mls @ 125 mls/hr 10/11/20 03:00 10/11/20 06:00 Nacl 0.9% 1000 Ml IV 0 mls/hr DIRECT RADHA Infusion Insulin Human Isoph/Insulin Regular 18 unit 10/12/20 08:00 10/13/20 08:11 Insulin Nph/Regular 70/30 Inj SUB-Q 18 unit BIDDIAB RADHA Administration Insulin Human Lispro 0 unit 10/11/20 16:30 10/13/20 08:18 Insulin Lispro 100 Unit/Ml SUB-Q 10 unit ACHS RADHA Administration Protocol Ondansetron HCl 4 mg 10/11/20 02:44 Ondansetron 4 Mg/2 Ml Inj IV Q6H PRN Nausea And Vomiting Pantoprazole Sodium 40 mg 10/13/20 07:30 10/13/20 08:12 Pantoprazole 40 Mg Tab PO 40 mg QDAC RADHA Administration Sodium Chloride 10 ml 10/11/20 10:00 10/13/20 09:08 Sodium Chloride 0.9% 10 Ml Flush Syringe IV 10 ml BID RADHA Administration Sodium Chloride 10 ml 10/11/20 02:44 Sodium Chloride 0.9% 10 Ml Flush Syringe IV PRN PRN LINE FLUSH Nutrition/Malnutrition Assess - Dietary Evaluation Nutrition/Malnutrition Findings: Nutrition Notes Start: 10/11/20 09:37 Freq: Status: Active Protocol: Document 10/12/20 11:24 ORA (Rec: 10/12/20 11:31 [id number]) Nutrition Notes Initial or Follow up Brief Note Current Diagnosis Diabetes Other Pertinent Diagnosis DKA Current Diet Consistent CHO Subjective/Other Information FU for diet education. Pt reports understanding DM diet but unable to make/buy food due to homelessness and no job . Pt reports unable to afford insulin. Case management made aware. Pt eating 100% of meals and reports no weight loss. Pt with heartburn, RN made aware. Nutrition Intervention Revisit per MD consult or patient Sign Off request:
[2020-10-13 12:06] VITALS: BP 107/67
--- NOTE | 2020-10-13 16:42 | Discharge Summary ---
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:: case management Additional Physician Instructions: Homeless, also needs help with access to medication Primary care physician: NANOFABRICATION SPECIALIST Hospitalization Condition: Stable Disposition: DC-01 TO HOME OR SELFCARE Time spent for discharge: 35 min Core Measure Documentation - Palliative Care Palliative Care/ Comfort Measures: Not Applicable - Core Measures Any of the following diagnoses?: none Exam - Constitutional Vitals: Temp Pulse Resp BP Pulse Ox 97.9 F 68 18 107/67 98 10/13/20 11:49 10/13/20 11:49 10/13/20 11:49 10/13/20 11:49 10/13/20 11:49 General appearance: Present: no acute distress, well-nourished - EENT Eyes: Present: PERRL, EOM intact - Neck Neck: Present: supple, normal ROM - Respiratory Respiratory effort: normal Respiratory: bilateral: diminished, negative: rales, rhonchi, wheezing - Cardiovascular Rhythm: regular Heart Sounds: Present: S1 & S2 - Extremities Extremities: no ischemia, No edema - Abdominal General gastrointestinal: Present: soft, non-tender, non-distended, normal bowel sounds - Integumentary Integumentary: Present: clear, warm - Musculoskeletal Musculoskeletal: strength equal bilaterally, generalized weakness - Psychiatric Psychiatric: appropriate mood/affect, cooperative - Neurologic Neurologic: CNII-XII intact, moves all extremities Plan Activity: advance as tolerated Diet: diabetic Additional Instructions: Advised to comply with medications diet and follow-up visits. If you have worsening symptoms contact MD or go to emergency room. You may go to [place] [facility] in 3 to 5 days or any urgent care center if needed. Follow up with: PRIMARY CARE, [Primary Care Provider] - 3-5 Days Prescriptions: Insulin Regular, Human [HumuLIN R] 10 units SUB-Q AC 30 Days #5 pen Insulin NPH/Regular [NovoLIN 70/30] 22 unit SUB-Q BIDDIAB #2 vial Omeprazole 20 mg PO QDAY #20 capsule.
== END 2020-10-13 17:26 | disposition home or self-care (01) | DRG 639 ==
LOC: ED 23:49 → CC1 10-11 02:45 → 4A 10-11 14:17
PROVIDERS: ADMIT Internal Medicine; ATTEND Internal Medicine
DX: E11.10 Type 2 diabetes mellitus with ketoacidosis without coma (principal); Z79.4 Long term (current) use of insulin; K21.9 Gastro-esophageal reflux disease without esophagitis; Z59.0 Homelessness; E11.40 Type 2 diabetes mellitus with diabetic neuropathy, unspecified; Z89.411 Acquired absence of right great toe; Z91.14 Patient's other noncompliance with medication regimen; F19.90 Other psychoactive substance use, unspecified, uncomplicated
CPT/HCPCS: 36415; 80048; 81001; 82010; 82805; 82962; 83036; 83735; 84100; 85025; 96361; 96365; 96366; 96367; G0378; C9113; J1644; J1815; J3475; J7030

== ENCOUNTER 2020-10-19 06:45 | Inpatient (IN) | payer SELFPAY ==
[2020-10-19] MEDS ORDERED: SODIUM CHLORIDE 0.9% 1000 ML 1,000 ML IV ONE ×3 (07:05→10:25)
[2020-10-19] MEDS ORDERED: ONDANSETRON 4 MG/2 ML INJ IV ONE (07:06)
--- NOTE | 2020-10-19 07:08 | Emergency Department Report ---
ED General Adult HPI - General Stated complaint: HIGH BLOOD SUGAR Time Seen by Provider: 10/19/20 07:04 - History of Present Illness Initial comments: Patient presents emergency department for evaluation of nausea vomiting diarrhea and hyperglycemia since yesterday. Patient notes noncompliance with insulin secondary to running out times several days. Patient denies fever, denies dysuria, does complain of polyuria and polydipsia. Patient complaining of mild crampy diffuse abdominal pain. In route to hospital, patient's blood sugar checked by medics which was found to be greater than 600. Patient presents with probable DKA, consequently required my immediate attention. - Related Data Previous Rx's Medication Instructions Recorded Last Taken Type Syrge-Ndl,Ins 0.5 ml Half Prabhu 1 each ACHS #100 disp.syrin 02/26/20 Unknown Rx [Droplet Insulin Syringe] Insulin NPH/Regular [NovoLIN 70/30] 22 unit SUB-Q BIDDIAB #2 vial 10/13/20 Unknown Rx Insulin Regular, Human [HumuLIN R] 5 units SC ACHS #2 vial 10/13/20 Unknown Rx Omeprazole 20 mg PO QDAY #20 capsule. 10/13/20 Unknown Rx Allergies Allergy/AdvReac Type Severity Reaction Status Date / Time No Known Allergies Allergy Verified 05/13/20 16:12 ED Review of Systems ROS: Stated complaint: HIGH BLOOD SUGAR Other details as noted in HPI Comment: All other systems reviewed and negative ED Past Medical Hx - Past Medical History Hx Congestive Heart Failure: No Hx Diabetes: Yes Hx Liver Disease: No Hx Asthma: No Hx COPD: No - Surgical History Additional Surgical History: AMPUTATION OF TOE - Social History Smoking Status: Unknown if ever smoked - Medications Home Medications: Home Medications Medication Instructions Recorded Confirmed Last Taken Type Syrge-Ndl,Ins 0.5 ml Half Prabhu 1 each ACHS #100 disp.syrin 02/26/20 10/11/20 Unknown Rx [Droplet Insulin Syringe] Insulin NPH/Regular [NovoLIN 70/30] 22 unit SUB-Q BIDDIAB #2 vial 10/13/20 Unknown Rx Insulin Regular, Human [HumuLIN R] 5 units SC ACHS #2 vial 10/13/20 Unknown Rx Omeprazole 20 mg PO QDAY #20 capsule. 10/13/20 Unknown Rx ED Physical Exam - General General appearance: alert, in distress - Head Head exam: Present: atraumatic, normocephalic - Eye Eye exam: Present: normal appearance - ENT ENT exam: Present: mucous membranes dry - Neck Neck exam: Present: normal inspection - Respiratory Respiratory exam: Present: normal lung sounds bilaterally, accessory muscle use, other (Tachypnea). Absent: respiratory distress - Cardiovascular Cardiovascular Exam: Present: normal rhythm, tachycardia. Absent: systolic murmur, diastolic murmur, rubs, gallop - GI/Abdominal GI/Abdominal exam: Present: soft, normal bowel sounds - Rectal Rectal exam: Present: deferred - Extremities Exam Extremities exam: Present: normal inspection - Back Exam Back exam: Present: normal inspection - Neurological Exam Neurological exam: Present: alert, oriented X3 - Psychiatric Psychiatric exam: Present: normal affect, normal mood - Skin Skin exam: Present: warm, dry, intact, normal color. Absent: rash ED Course Vital Signs 10/19/20 10/19/20 10/19/20 07:00 07:13 07:15 Temperature 98.0 F Pulse Rate 97 H 114 H 94 H Respiratory 18 24 Rate Blood Pressure 128/55 O2 Sat by Pulse 100 Oximetry 10/19/20 10/19/20 10/19/20 07:31 07:45 08:01 Temperature Pulse Rate 96 H 91 H 97 H Respiratory 17 24 16 Rate Blood Pressure 128/55 128/55 128/55 O2 Sat by Pulse 100 99 100 Oximetry 10/19/20 10/19/20 10/19/20 08:15 08:31 08:45 Temperature Pulse Rate 98 H 97 H 99 H Respiratory 16 14 15 Rate Blood Pressure 128/55 128/55 115/42 O2 Sat by Pulse 100 100 100 Oximetry 10/19/20 10/19/20 10/19/20 09:01 09:15 09:31 Temperature Pulse Rate 99 H 105 H 110 H Respiratory 15 21 22 Rate Blood Pressure 115/42 120/49 120/49 O2 Sat by Pulse 99 100 100 Oximetry - Reevaluation(s) Reevaluation #1: 10/19/20 07:07 Patient initially treated with IV normal saline 1 L x 2, Zofran 4 mg IV x1. Reevaluation #2: 10/19/20 12:28 Patient treated with third liter IV NS, remains hyperglycemic greater than 600, given insulin 10 units IV x1. Patient no longer tachypneic or Tachycardic 10/19/20 12:29 ED Medical Decision Making - Lab Data Result diagrams: 10/19/20 09:50 10/19/20 09:50 Lab Results 10/19/20 10/19/20 10/19/20 Range/Units 09:50 09:50 09:50 WBC 16.8 H (4.5-11.0) K/mm3 RBC 4.19 (3.65-5.03) M/mm3 Hgb 13.5 (11.8-15.2) gm/dl Hct 45.6 (35.5-45.6) % MCV 109 H (84-94) fl MCH 32 (28-32) pg MCHC 30 L (32-34) % RDW 16.2 H (13.2-15.2) % Plt Count 291 (140-440) K/mm3 Lymph % (Auto) 4.7 L (13.4-35.0) % [place] % (Auto) 4.7 (0.0-7.3) % Eos % (Auto) 0.2 (0.0-4.3) % Baso % (Auto) 2.5 H (0.0-1.8) % Lymph # (Auto) 0.8 L (1.2-5.4) K/mm3 [place] # (Auto) 0.8 (0.0-0.8) K/mm3 Eos # (Auto) 0.0 (0.0-0.4) K/mm3 Baso # (Auto) 0.4 H (0.0-0.1) K/mm3 Seg Neutrophils % 87.9 H (40.0-70.0) % Seg Neutrophils # 14.7 H (1.8-7.7) K/mm3 VBG pH (7.320-7.420) Sodium 132 L (137-145) mmol/L Potassium 6.0 H (3.6-5.0) mmol/L Chloride 86.7 L (98-107) mmol/L Carbon Dioxide 9 L* (22-30) mmol/L Anion Gap 42 mmol/L BUN 37 H (9-20) mg/dL Creatinine 1.8 H (0.8-1.3) mg/dL Estimated GFR 47 ml/min BUN/Creatinine Ratio 21 % Glucose 880 H* (75-100) mg/dL Calcium 9.2 (8.4-10.2) mg/dL Magnesium 2.40 H (1.7-2.3) mg/dL Total Bilirubin 0.20 (0.1-1.2) mg/dL AST 21 (5-40) units/L ALT 21 (7-56) units/L Alkaline Phosphatase 144 H (35-129) units/L Troponin T < 0.010 (0.00-0.029) ng/mL Total Protein 7.8 (6.3-8.2) g/dL Albumin 4.1 (3.9-5) g/dL Albumin/Globulin Ratio 1.1 % Urine Color (Yellow) Urine Turbidity (Clear) Urine pH (5.0-7.0) Ur Specific [place] (1.003-1.030) Urine Protein (Negative) mg/dL Urine Glucose (UA) (Negative) mg/dL Urine Ketones (Negative) mg/dL Urine Blood (Negative) Urine Nitrite (Negative) Urine Bilirubin (Negative) Urine Urobilinogen (<2.0) mg/dL Ur Leukocyte Esterase (Negative) Urine WBC (Auto) (0.0-6.0) /HPF Urine RBC (Auto) (0.0-6.0) /HPF Urine Mucus /HPF 10/19/20 10/19/20 Range/Units 09:50 Unknown WBC (4.5-11.0) K/mm3 RBC (3.65-5.03) M/mm3 Hgb (11.8-15.2) gm/dl Hct (35.5-45.6) % MCV (84-94) fl MCH (28-32) pg MCHC (32-34) % RDW (13.2-15.2) % Plt Count (140-440) K/mm3 Lymph % (Auto) (13.4-35.0) % [place] % (Auto) (0.0-7.3) % Eos % (Auto) (0.0-4.3) % Baso % (Auto) (0.0-1.8) % Lymph # (Auto) (1.2-5.4) K/mm3 [place] # (Auto) (0.0-0.8) K/mm3 Eos # (Auto) (0.0-0.4) K/mm3 Baso # (Auto) (0.0-0.1) K/mm3 Seg Neutrophils % (40.0-70.0) % Seg Neutrophils # (1.8-7.7) K/mm3 VBG pH 7.077 L* (7.320-7.420) Sodium (137-145) mmol/L Potassium (3.6-5.0) mmol/L Chloride (98-107) mmol/L Carbon Dioxide (22-30) mmol/L Anion Gap mmol/L BUN (9-20) mg/dL Creatinine (0.8-1.3) mg/dL Estimated GFR ml/min BUN/Creatinine Ratio % Glucose (75-100) mg/dL Calcium (8.4-10.2) mg/dL Magnesium (1.7-2.3) mg/dL Total Bilirubin (0.1-1.2) mg/dL AST (5-40) units/L ALT (7-56) units/L Alkaline Phosphatase (35-129) units/L Troponin T (0.00-0.029) ng/mL Total Protein (6.3-8.2) g/dL Albumin (3.9-5) g/dL Albumin/Globulin Ratio % Urine Color Straw (Yellow) Urine Turbidity Clear (Clear) Urine pH 5.0 (5.0-7.0) Ur Specific [place] 1.017 (1.003-1.030) Urine Protein <15 mg/dl (Negative) mg/dL Urine Glucose (UA) >=500 (Negative) mg/dL Urine Ketones 80 (Negative) mg/dL Urine Blood Neg (Negative) Urine Nitrite Neg (Negative) Urine Bilirubin Neg (Negative) Urine Urobilinogen < 2.0 (<2.0) mg/dL Ur Leukocyte Esterase Neg (Negative) Urine WBC (Auto) < 1.0 (0.0-6.0) /HPF Urine RBC (Auto) 1.0 (0.0-6.0) /HPF Urine Mucus Few /HPF Vital Signs 10/19/20 10/19/20 10/19/20 07:00 07:13 07:15 Temperature 98.0 F Pulse Rate 97 H 114 H 94 H Respiratory 18 24 Rate Blood Pressure 128/55 O2 Sat by Pulse 100 Oximetry 10/19/20 10/19/20 10/19/20 07:31 07:45 08:01 Temperature Pulse Rate 96 H 91 H 97 H Respiratory 17 24 16 Rate Blood Pressure 128/55 128/55 128/55 O2 Sat by Pulse 100 99 100 Oximetry 10/19/20 10/19/20 10/19/20 08:15 08:31 08:45 Temperature Pulse Rate 98 H 97 H 99 H Respiratory 16 14 15 Rate Blood Pressure 128/55 128/55 115/42 O2 Sat by Pulse 100 100 100 Oximetry 10/19/20 10/19/20 10/19/20 09:01 09:15 09:31 Temperature Pulse Rate 99 H 105 H 110 H Respiratory 15 21 22 Rate Blood Pressure 115/42 120/49 120/49 O2 Sat by Pulse 99 100 100 Oximetry - EKG Data -: EKG Interpreted by Me (Sinus rhythm 96, no ST-T changes, normal QRS) Critical Care Time: Yes Critical care time in (mins) excluding proc time.: 35 Critical care attestation.: If time is entered above; I have spent that time in minutes in the direct care of this critically ill patient, excluding procedure time. ED Disposition Clinical Impression: DKA (diabetic ketoacidoses) Disposition: - OP ADMIT IP TO THIS HOSP Is pt being admited?: Yes Condition: Fair Instructions: Diabetic Ketoacidosis (ED) Referrals: PRIMARY CARE, [Primary Care Provider] - 3-5 Days
[2020-10-19 07:35] LABS: Bilirubin,Urine NEG (Negative); Blood,Urine NEG (Negative); Color,Urine Straw (Yellow); Mucus,Urine FEW /HPF; Protein,Urine <15 mg/dL mg/dL (Negative); Urobilinogen,Urine < 2.0 mg/dL (<2.0); WBC,Urine < 1.0 /HPF (0.0-6.0)
[2020-10-19 10:19] LABS: Basophils # (Auto) 0.4 K/mm3 (0.0-0.1); Basophils % (Auto) 2.5 % (0.0-1.8); Eosinophils % (Auto) 0.2 % (0.0-4.3); Lymphocytes # (Auto) 0.8 K/mm3 (1.2-5.4); Lymphocytes % (Auto) 4.7 % (13.4-35.0); Mean Corpuscular HGB Conc 30 % (32-34); Mean Corpuscular Volume 109 fl (84-94); Monocytes # (Auto) 0.8 K/mm3 (0.0-0.8); Monocytes % (Auto) 4.7 % (0.0-7.3); Platelet Count 291 K/mm3 (140-440); Red Blood Count 4.19 M/mm3 (3.65-5.03); Red Cell Distribution Width 16.2 % (13.2-15.2)
[2020-10-19 10:23] LABS: Hematocrit 45.6 % (35.5-45.6); Hemoglobin 13.5 gm/dl (11.8-15.2)
[2020-10-19 10:37] LABS: Alanine Aminotransferase 21 units/L (7-56); Albumin 4.1 g/dL (3.9-5); BUN/Creatinine Ratio 21; Blood Urea Nitrogen 37 mg/dL (9-20); Calcium 9.2 mg/dL (8.4-10.2); Hemolysis Index 22
--- NOTE | 2020-10-19 11:12 | XRay Report ---
CHEST 1 VIEW INDICATION: weakness COMPARISON: 05/06/2020 FINDINGS: Support devices: None Heart: Normal and unchanged Lungs/Pleura: No acute pulmonary or pleural findings. IMPRESSION: 1. No acute disease and no interval change. Signer Name: Stephen Torrez MD Signed: 10/19/2020 11:08 AM Workstation Name: [id number]
[2020-10-19] MEDS ORDERED: INSULIN REGULAR, HUMAN 100 UNITS/1 ML IV ONE (11:46)
--- NOTE | 2020-10-19 11:50 | History and Physical Report ---
History of Present Illness Chief complaint: I ran out of medicine History of present illness: 60 YO Male with DM, Malnutrition, Homelessness, PSA presents to ED for evaluation. Patient states that he has been "ran out of medication and is feeling sick". Patient states that he has experienced nausea, multiple episodes of vomiting, and blood glucose over 600 over the past 1 day. EMS was notified and upon arrival the patient was found to be in distress and subsequently transported to [facility] for further care and evaluation of the aforementioned symptoms. The patient was seen and evaluated in the emergency department. All lab and imaging studies reviewed. Patient was found to have diabetic ketoacidosis complicated by sepsis. Patient initiated on DKA and sepsis protocols and admitted to ICU due to increased risk for endocrine decompensation. Patient denies fever, chills, chest pain, palpitation, shortness of breath, recent ill contacts, trauma, or known exposure to COVID-19. No prior admission for review. All medication listed at time of admission has been reconciled. Prior admission on 10/11/2020 reviewed. Critical care team consulted in ED. advanced care planning conducted in ED. Past History Past Medical History: diabetes, hypertension Past Surgical History: Other (Toe amputation) Social history: single, smoking Family history: hypertension Medications and Allergies Allergies Allergy/AdvReac Type Severity Reaction Status Date / Time No Known Allergies Allergy Verified 05/13/20 16:12 Home Medications Medication Instructions Recorded Confirmed Last Taken Type Syrge-Ndl,Ins 0.5 ml Half Prabhu 1 each ACHS #100 disp.syrin 02/26/20 10/11/20 Unknown Rx [Droplet Insulin Syringe] Insulin NPH/Regular [NovoLIN 70/30] 22 unit SUB-Q BIDDIAB #2 vial 10/13/20 Unknown Rx Insulin Regular, Human [HumuLIN R] 5 units SC ACHS #2 vial 10/13/20 Unknown Rx Omeprazole 20 mg PO QDAY #20 jaswinder. 10/13/20 Unknown Rx Review of Systems Constitutional: no weight loss, no weight gain, no fever, no chills Ears, nose, mouth and throat: no ear pain, no ear discharge, no decreased hearing, no nose pain, no nasal congestion Cardiovascular: no chest pain, no orthopnea, no rapid/irregular heart beat, no edema, no syncope Respiratory: no cough, no excessive sputum, no shortness of breath Gastrointestinal: abdominal pain, nausea, vomiting, no diarrhea, no constipation Genitourinary Male: no hematuria, no flank pain, no discharge, no urinary frequency, no urinary hesitancy Rectal: no pain, no incontinence Musculoskeletal: no neck stiffness, no arm numbness/tingling, no low back pain, no redness of joints Integumentary: no rash, no pruritis, no redness, no sores, no wounds Neurological: no transient paralysis, no weakness, no numbness, no syncope Psychiatric: no anxiety, no sleep disturbances, no insomnia Endocrine: no cold intolerance, no polyphagia, no excessive thirst, no polydipsia, no polyuria Hematologic/Lymphatic: no easy bruising, no easy bleeding, no lymphadenopathy Allergic/Immunologic: no urticaria, no wheezing, no persistent infections, no anaphylaxis, no angioedema Exam - Constitutional Vitals: Temp Pulse Resp BP Pulse Ox 98.0 F 110 H 22 120/49 100 10/19/20 07:00 10/19/20 09:31 10/19/20 09:31 10/19/20 09:31 10/19/20 09:31 General appearance: Present: mild distress - EENT Eyes: Present: PERRL ENT: hearing intact, clear oral mucosa - Neck Neck: Present: supple, normal ROM - Respiratory Respiratory effort: normal Respiratory: bilateral: CTA - Cardiovascular Heart Sounds: Present: S1 & S2. Absent: rub, click - Extremities Extremities: pulses symmetrical, No edema Peripheral Pulses: within normal limits - Abdominal General gastrointestinal: Present: soft, non-tender, non-distended, normal bowel sounds Male genitourinary: Present: normal - Integumentary Integumentary: Present: clear, warm, dry - Musculoskeletal Musculoskeletal: gait normal, strength equal bilaterally - Psychiatric Psychiatric: appropriate mood/affect, intact judgment & insight - Neurologic Neurologic: CNII-XII intact, moves all extremities HEART Score - HEART Score Troponin: Troponin T < 0.010 ng/mL (0.00-0.029) 10/19/20 09:50 Results - Labs CBC & Chem 7: 10/19/20 09:50 10/19/20 09:50 Labs: Abnormal lab results 10/19/20 10/19/20 10/19/20 Range/Units 09:50 09:50 09:50 WBC 16.8 H (4.5-11.0) K/mm3 MCV 109 H (84-94) fl MCHC 30 L (32-34) % RDW 16.2 H (13.2-15.2) % Lymph % (Auto) 4.7 L (13.4-35.0) % Baso % (Auto) 2.5 H (0.0-1.8) % Lymph # (Auto) 0.8 L (1.2-5.4) K/mm3 Baso # (Auto) 0.4 H (0.0-0.1) K/mm3 Seg Neutrophils % 87.9 H (40.0-70.0) % Seg Neutrophils # 14.7 H (1.8-7.7) K/mm3 VBG pH (7.320-7.420) Sodium 132 L (137-145) mmol/L Potassium 6.0 H (3.6-5.0) mmol/L Chloride 86.7 L (98-107) mmol/L Carbon Dioxide 9 L* (22-30) mmol/L BUN 37 H (9-20) mg/dL Creatinine 1.8 H (0.8-1.3) mg/dL Glucose 880 H* (75-100) mg/dL Magnesium 2.40 H (1.7-2.3) mg/dL Alkaline Phosphatase 144 H (35-129) units/L 10/19/20 Range/Units 09:50 WBC (4.5-11.0) K/mm3 MCV (84-94) fl MCHC (32-34) % RDW (13.2-15.2) % Lymph % (Auto) (13.4-35.0) % Baso % (Auto) (0.0-1.8) % Lymph # (Auto) (1.2-5.4) K/mm3 Baso # (Auto) (0.0-0.1) K/mm3 Seg Neutrophils % (40.0-70.0) % Seg Neutrophils # (1.8-7.7) K/mm3 VBG pH 7.077 L* (7.320-7.420) Sodium (137-145) mmol/L Potassium (3.6-5.0) mmol/L Chloride (98-107) mmol/L Carbon Dioxide (22-30) mmol/L BUN (9-20) mg/dL Creatinine (0.8-1.3) mg/dL Glucose (75-100) mg/dL Magnesium (1.7-2.3) mg/dL Alkaline Phosphatase (35-129) units/L Assessment and Plan - Patient Problems (1) Sepsis Current Visit: Yes Status: Acute Plan to address problem: Sepsis protocol: CBC, CMP, chest x-ray, urinalysis, IV antibiotic therapy, IV fluid resuscitation therapy, serial lactic acid level, blood culture. Maintain mean arterial pressure greater than or equal to 65 mmHg, monitor fluid balance. (2) DKA (diabetic ketoacidoses) Current Visit: Yes Status: Acute Qualifiers: Diabetes mellitus complication detail: without coma Plan to address problem: DKA protocol: Insulin drip, IV fluid resuscitation therapy, monitor anion gap, serial BMP, potassium repletion as per protocol. Critical care team consulted. The high probability of a clinically significant, sudden or life threatening deterioration of the [neuro, endocrine, renal] system(s) required my full and direct attention, intervention and personal management. The aggregate critical care time was [65] minutes. This time is in addition to time spent performing reported procedures but includes the following: [x] Data Review and interpretation [x] Patient assessment and monitoring of vital signs [x] Documentation [x] Medication orders and management (3) Malnutrition Current Visit: Yes Status: Acute Qualifiers: Malnutrition type: protein-calorie malnutrition Protein-calorie malnutrition severity: moderate Qualified Code(s): E44.0 - Moderate protein- calorie malnutrition Plan to address problem: Encourage increased protein intake, dietary supplementation (4) Homelessness Current Visit: Yes Status: Acute Plan to address problem: Case management consult, (5) DVT prophylaxis Current Visit: No Status: Acute Plan to address problem: SCD to bilateral lower extremities while in bed, (6) Advance care planning Current Visit: No Status: Acute Plan to address problem: Disease education conducted, patient is full code, care plan discussed, prognosis discussed, diagnosis discussed, patient knowledges understanding agree with care plan, +30 minutes.
[2020-10-19] MEDS ORDERED: ACETAMINOPHEN 325 MG TAB PO PRN (11:51)
[2020-10-19] MEDS ORDERED: HYDROmorphone 1 MG/1 ML INJ IV PRN (11:51)
[2020-10-19] MEDS ORDERED: SODIUM CHLORIDE 0.9% 1000 ML IV SOLN IV ONE (11:51)
[2020-10-19] MEDS: cefTRIAXone/NS 1 GM/50 ML 1 GM/50 ML BAG IV SCH (12:37)
[2020-10-19] MEDS ORDERED: SODIUM BICARB 8.4% 50 MEQ/50 ML SYRINGE IV ONE (13:00)
[2020-10-19] MEDS: INSULIN REGULAR, HUMAN 100 UNITS in SODIUM CHLORIDE 0.9% 99 ML IV SCH (16:02)
[2020-10-20] MEDS ORDERED: SODIUM CHLORIDE 0.9% 1000 ML 1,000 ML IV SCH (01:15)
[2020-10-20] MEDS: INSULIN REGULAR, HUMAN 100 UNITS in SODIUM CHLORIDE 0.9% 99 ML IV SCH (04:20)
[2020-10-20 06:12] LABS: Basophils % (Auto) 0.2 % (0.0-1.8); Hematocrit 41.1 % (35.5-45.6); Hemoglobin 13.4 gm/dl (11.8-15.2); Lymphocytes # (Auto) 1.2 K/mm3 (1.2-5.4); Lymphocytes % (Auto) 7.3 % (13.4-35.0); Mean Corpuscular HGB Conc 33 % (32-34); Mean Corpuscular Volume 98 fl (84-94); Monocytes # (Auto) 1.1 K/mm3 (0.0-0.8); Monocytes % (Auto) 6.6 % (0.0-7.3); Platelet Count 295 K/mm3 (140-440); Red Cell Distribution Width 15.2 % (13.2-15.2)
[2020-10-20 06:27] LABS: Calcium 8.8 mg/dL (8.4-10.2)
[2020-10-20] MEDS: PANTOPRAZOLE 20 MG TAB PO SCH (09:27)
[2020-10-20] MEDS ORDERED: NON-FORMULARY EACH (Omeprazole [Omeprazole] 20 MG Capsule.Dr) PO SCH (10:00)
[2020-10-20] MEDS ORDERED: D5W/0.45% NACL 1,000 ML IV SCH (10:00)
[2020-10-20 11:35] LABS: BUN/Creatinine Ratio 20; Blood Urea Nitrogen 24 mg/dL (9-20); Calcium 8.6 mg/dL (8.4-10.2); Hemolysis Index 27
[2020-10-20] MEDS ORDERED: DEXTROSE 50% IN WATER (25GM) 50 ML SYRINGE IV PRN (11:51)
[2020-10-20] MEDS: cefTRIAXone/NS 1 GM/50 ML 1 GM/50 ML BAG IV SCH (12:03)
[2020-10-20] MEDS: INSULIN NPH/REGULAR 70/30 INJ SUB-Q SCH ×2 (13:01→17:41)
--- NOTE | 2020-10-20 13:52 | Progress Note ---
Assessment and Plan Assessment and plan: (1) DKA (diabetic ketoacidoses) Current Visit: Yes Status: Acute Qualifiers: Diabetes mellitus complication detail: without coma Plan to address problem: Anion gap closed Started on subcutaneous insulin Transferred to the floor Monitor blood glucose closely (2) moderate protein calorie malnutrition Current Visit: Yes Status: Acute Qualifiers: Malnutrition type: protein-calorie malnutrition Protein-calorie malnutrition severity: moderate Qualified Code(s): E44.0 - Moderate protein- calorie malnutrition Plan to address problem: Encourage increased protein intake, dietary supplementation (3) Homelessness Current Visit: Yes Status: Acute Plan to address problem: Case management consult, (4) DVT prophylaxis Current Visit: No Status: Acute Plan to address problem: SCD to bilateral lower extremities while in bed, (5) Advance care planning Current Visit: No Status: Acute Plan to address problem: Disease education conducted, patient is full code, care plan discussed, prognosis discussed, diagnosis discussed, patient knowledges understanding agree with care plan, +30 minutes. History Interval history: Patient states that he ran out of insulin. Request for home insulin as he has no money. Anion gap closed. Started on subcutaneous insulin. Resume diet Transferred to the floors Hospitalist Physical - Physical exam Narrative exam: VITAL SIGNS: Reviewed. GENERAL: Awake HEAD: No signs of head trauma. EYES: Pupils are equal. Extraocular motions intact. MOUTH: Oropharynx is normal. NECK: No adenopathy, no JVD. CHEST: Chest with diminished breath sounds bilaterally. No wheezes, rales, or rhonchi. CARDIAC: normal S1 and S2, without murmurs, gallops, or rubs. ABDOMEN: Soft, non tender and non distended. No rebound or guarding, and no masses palpated. Bowel Sounds normal. MUSCULOSKELETAL: No edema NEUROLOGIC EXAM: Alert and oriented x3. No focal neurologic deficits SKIN: No obvious lesions - Constitutional Vitals: Temp Pulse Resp BP Pulse Ox 97.9 F 88 17 131/70 99 10/20/20 12:00 10/20/20 12:20 10/20/20 12:20 10/20/20 12:20 10/20/20 12:20 HEART Score - HEART Score Troponin: Troponin T < 0.010 ng/mL (0.00-0.029) 10/19/20 09:50 Results - Labs CBC & Chem 7: 10/20/20 05:32 10/20/20 10:25 Labs: Laboratory Last Values WBC 16.4 K/mm3 (4.5-11.0) H 10/20/20 05:32 RBC 4.20 M/mm3 (3.65-5.03) 10/20/20 05:32 Hgb 13.4 gm/dl (11.8-15.2) 10/20/20 05:32 Hct 41.1 % (35.5-45.6) 10/20/20 05:32 MCV 98 fl (84-94) H 10/20/20 05:32 MCH 32 pg (28-32) 10/20/20 05:32 MCHC 33 % (32-34) 10/20/20 05:32 RDW 15.2 % (13.2-15.2) 10/20/20 05:32 Plt Count 295 K/mm3 (140-440) 10/20/20 05:32 Lymph % (Auto) 7.3 % (13.4-35.0) L 10/20/20 05:32 Cross % (Auto) 6.6 % (0.0-7.3) 10/20/20 05:32 Eos % (Auto) 0.0 % (0.0-4.3) 10/20/20 05:32 Baso % (Auto) 0.2 % (0.0-1.8) 10/20/20 05:32 Lymph # (Auto) 1.2 K/mm3 (1.2-5.4) 10/20/20 05:32 Cross # (Auto) 1.1 K/mm3 (0.0-0.8) H 10/20/20 05:32 Eos # (Auto) 0.0 K/mm3 (0.0-0.4) 10/20/20 05:32 Baso # (Auto) 0.0 K/mm3 (0.0-0.1) 10/20/20 05:32 Seg Neutrophils % 85.9 % (40.0-70.0) H 10/20/20 05:32 Seg Neutrophils # 14.1 K/mm3 (1.8-7.7) H 10/20/20 05:32 VBG pH 7.077 (7.320-7.420) L* 10/19/20 09:50 Sodium 148 mmol/L (137-145) H 10/20/20 10:25 Potassium 3.7 mmol/L (3.6-5.0) 10/20/20 10:25 Chloride 116.5 mmol/L (98-107) H 10/20/20 10:25 Carbon Dioxide 23 mmol/L (22-30) 10/20/20 10:25 Anion Gap 12 mmol/L 10/20/20 10:25 BUN 24 mg/dL (9-20) H 10/20/20 10:25 Creatinine 1.2 mg/dL (0.8-1.3) 10/20/20 10:25 Estimated GFR > 60 ml/min 10/20/20 10:25 BUN/Creatinine Ratio 20 % 10/20/20 10:25 Glucose 97 mg/dL (75-100) 10/20/20 10:25 POC Glucose 106 mg/dL (70-105) H 10/20/20 12:10 Calcium 8.6 mg/dL (8.4-10.2) 10/20/20 10:25 Magnesium 2.40 mg/dL (1.7-2.3) H 10/19/20 09:50 Total Bilirubin 0.20 mg/dL (0.1-1.2) 10/19/20 09:50 AST 21 units/L (5-40) 10/19/20 09:50 ALT 21 units/L (7-56) 10/19/20 09:50 Alkaline Phosphatase 144 units/L (35-129) H 10/19/20 09:50 Troponin T < 0.010 ng/mL (0.00-0.029) 10/19/20 09:50 Total Protein 7.8 g/dL (6.3-8.2) 10/19/20 09:50 Albumin 4.1 g/dL (3.9-5) 10/19/20 09:50 Albumin/Globulin Ratio 1.1 % 10/19/20 09:50 Urine Color Straw (Yellow) 10/19/20 Unknown Urine Turbidity Clear (Clear) 10/19/20 Unknown Urine pH 5.0 (5.0-7.0) 10/19/20 Unknown Ur Specific [place] 1.017 (1.003-1.030) 10/19/20 Unknown Urine Protein <15 mg/dl mg/dL (Negative) 10/19/20 Unknown Urine Glucose (UA) >=500 mg/dL (Negative) 10/19/20 Unknown Urine Ketones 80 mg/dL (Negative) 10/19/20 Unknown Urine Blood Neg (Negative) 10/19/20 Unknown Urine Nitrite Neg (Negative) 10/19/20 Unknown Urine Bilirubin Neg (Negative) 10/19/20 Unknown Urine Urobilinogen < 2.0 mg/dL (<2.0) 10/19/20 Unknown Ur Leukocyte Esterase Neg (Negative) 10/19/20 Unknown Urine WBC (Auto) < 1.0 /HPF (0.0-6.0) 10/19/20 Unknown Urine RBC (Auto) 1.0 /HPF (0.0-6.0) 10/19/20 Unknown Urine Mucus Few /HPF 10/19/20 Unknown Microbiology: Microbiology 10/19/20 12:30 Peripheral/Venous Blood Culture - Preliminary NO GROWTH AFTER 24 HOURS 10/19/20 12:30 Peripheral/Venous Blood Culture - Preliminary NO GROWTH AFTER 24 HOURS Mars/IV: Voiding Method Urinal Active Medications - Current Medications Current Medications: Generic Name Dose Route Start Last Admin Trade Name Freq PRN Reason Stop Dose Admin Acetaminophen 650 mg 10/19/20 11:51 Acetaminophen 325 Mg Tab PO Q6H PRN Pain, Mild (1-3) Dextrose 50 ml 10/20/20 11:51 Dextrose 50% In Water (25gm) 50 Ml Syringe IV Q30MIN PRN Hypoglycemia Protocol Hydromorphone HCl 0.25 mg 10/19/20 11:51 Hydromorphone 1 Mg/1 Ml Inj IV Q4H PRN Pain, Moderate (4-6) Ceftriaxone Sodium 1 gm in 50 mls @ 100 mls/hr 10/19/20 12:00 10/20/20 12:03 Rocephin/Ns 1 Gm/50 Ml IV 10/21/20 12:29 100 mls/hr Q24H RADHA Administration Protocol Sodium Chloride 1,000 mls @ 125 mls/hr 10/20/20 01:15 10/20/20 09:26 Nacl 0.9% 1000 Ml IV 0 mls/hr DIRECT RADHA Infusion Dextrose/Sodium Chloride 1,000 mls @ 125 mls/hr 10/20/20 10:00 10/20/20 09:27 D5/0.45ns IV 125 mls/hr DIRECT RADHA Administration Insulin Human Isoph/Insulin Regular 20 unit 10/20/20 12:00 10/20/20 13:01 Insulin Nph/Regular 70/30 Inj SUB-Q 20 unit BIDDIAB RADHA Administration Insulin Human Lispro 0 unit 10/20/20 16:30 Insulin Lispro 100 Unit/Ml SUB-Q ACHS RADHA Protocol Pantoprazole Sodium 20 mg 10/20/20 10:00 10/20/20 09:27 Pantoprazole 20 Mg Tab PO 20 mg QDAY RADHA Administration Sodium Chloride 10 ml 10/19/20 22:00 10/20/20 09:28 Sodium Chloride 0.9% 10 Ml Flush Syringe IV 10 ml BID RADHA Administration Sodium Chloride 10 ml 10/19/20 11:51 Sodium Chloride 0.9% 10 Ml Flush Syringe IV PRN PRN LINE FLUSH
[2020-10-20 15:54] LABS: BUN/Creatinine Ratio 20; Blood Urea Nitrogen 22 mg/dL (9-20); Calcium 8.1 mg/dL (8.4-10.2); Hemolysis Index 9
[2020-10-20] MEDS ORDERED: POTASSIUM CHLORIDE ER 20 MEQ TAB PO NR (17:03)
[2020-10-20] MEDS: INSULIN LISPRO 100 UNIT/ML SUB-Q SCH ×2 (17:41→22:00)
[2020-10-20] MEDS ORDERED: ALUM-MAG HYDROXIDE-SIMETHICONE 200-200-20MG/5ML ORAL LIQD 30 ML PO ONE (23:47)
[2020-10-21] MEDS: INSULIN LISPRO 100 UNIT/ML SUB-Q SCH ×2 (07:41→12:29)
[2020-10-21] MEDS: INSULIN NPH/REGULAR 70/30 INJ SUB-Q SCH (10:23)
[2020-10-21] MEDS: PANTOPRAZOLE 20 MG TAB PO SCH (10:24)
--- NOTE | 2020-10-21 10:38 | Discharge Summary ---
Providers - Providers Date of Admission: 10/19/20 11:51 Date of discharge: 10/21/20 Attending physician: FEI KIDD 10/20/20 08:02 Consult to Physician [CONS] Routine Comment: Consulting Provider: ANNE TROY Physician Instructions: Reason For Exam: DKA Primary care physician: [facility] Hospitalization Condition: Fair Hospital course: istory of present illness: 60 YO Male with DM, Malnutrition, Homelessness, PSA presents to ED for evaluation. Patient states that he has been "ran out of medication and is feel ing sick". Patient states that he has experienced nausea, multiple episodes of vomiting, and blood glucose over 600 over the past 1 day. EMS was notified and upon arrival the patient was found to be in distress and subsequently transported to [facility] for further care and evaluation of the aforementioned symptoms. The patient was seen and evaluated in the emergency department. All lab and imaging studies reviewed. Patient was found to have diabetic ketoacidosis complicated by sepsis. Patient initiated on DKA and sepsis protocols and admitted to ICU due to increased risk for endocrine decompen sation. Patient denies fever, chills, chest pain, palpitation, shortness of breath, recent ill contacts, trauma, or known exposure to COVID-19. No prior admission for review. All medication listed at time of admission has been reconciled. Prior admission on 10/11/2020 reviewed. Critical care team consulted in ED. advanced care planning conducted in ED. Hospital course Patient was started on insulin drip and admitted to the ICU. Blood glucose continue to be monitored. Patient states that he ran out of insulin. Request for home insulin as he has no money. Anion gap subsequently closed and he was started on subcutaneous insulin and transferred to the floors. Patient blood glucose remained stable Patient's blood sugar remains in the low 100s. Patient will be discharged on current insulin regimen. He will follow-up with PCP in the office. He agrees with plan Disposition: - TO HOME OR SELFCARE Time spent for discharge: 40 mins - Discharge Diagnoses (1) DKA (diabetic ketoacidoses) Status: Acute Qualifiers: Diabetes mellitus complication detail: without coma (2) Homelessness Status: Acute (3) Malnutrition Status: Acute Qualifiers: Malnutrition type: protein-calorie malnutrition Protein-calorie malnutrition severity: moderate Qualified Code(s): E44.0 - Moderate protein-c alorie malnutrition Core Measure Documentation - Palliative Care Palliative Care/ Comfort Measures: Not Applicable - Core Measures Any of the following diagnoses?: none Exam - Physical Exam Narrative exam: VITAL SIGNS: Reviewed. GENERAL: Awake HEAD: No signs of head trauma. EYES: Pupils are equal. Extraocular motions intact. MOUTH: Oropharynx is normal. NECK: No adenopathy, no JVD. CHEST: Chest with diminished breath sounds bilaterally. No wheezes, rales, or rhonchi. CARDIAC: normal S1 and S2, without murmurs, gallops, or rubs. ABDOMEN: Soft, non tender and non distended. No rebound or guarding, and no masses palpated. Bowel Sounds normal. MUSCULOSKELETAL: No edema NEUROLOGIC EXAM: Alert and oriented x3. No focal neurologic deficits SKIN: No obvious lesions - Constitutional Vitals: Temp Pulse Resp BP Pulse Ox 98.8 F 72 18 129/67 99 10/21/20 07:11 10/21/20 07:11 10/21/20 07:11 10/21/20 07:11 10/21/20 07:11 Plan Activity: no restrictions Additional Instructions: Continue insulin as prescribed. Continue to monitor blood glucose twice a day (before breakfast and dinner) and follow-up with your primary medical doctor Follow up with: PRIMARY CARE, [Primary Care Provider] - 3-5 Days Forms: Discharge Signature Page Prescriptions: Insulin NPH/Regular [NovoLIN 70/30] 20 unit SUB-Q BIDDIAB #10 ml Other Discharge Orders: Glucometer (Amb) Location: None Selected
[2020-10-21 12:47] VITALS: BP 141/73
[2020-10-21] MEDS ORDERED: SUCRALFATE 1 GM/10 ML ORAL LIQD PO SCH (13:00)
== END 2020-10-21 16:30 | disposition home or self-care (01) | DRG 871 ==
LOC: ED 06:45 → CC1 11:51 → 4A 10-20 16:41
PROVIDERS: ADMIT Internal Medicine; ATTEND Internal Medicine
DX: A41.9 Sepsis, unspecified organism (principal); E11.10 Type 2 diabetes mellitus with ketoacidosis without coma; E44.0 Moderate protein-calorie malnutrition; I10 Essential (primary) hypertension; Z59.0 Homelessness; Z82.49 Family history of ischemic heart disease and other diseases of the circulatory system; Z79.4 Long term (current) use of insulin; Z79.899 Other long term (current) drug therapy; Z89.429 Acquired absence of other toe(s), unspecified side
CPT/HCPCS: 36415; 71045; 80048; 80053; 81001; 82805; 82947; 82962; 83735; 84484; 85025; 87040; 93005; 96361; 96365; 96375; G0378; J0696; J1815; J2405; J7030

== ENCOUNTER 2020-12-12 11:12 | Emergency (ER) | payer SELFPAY ==
[2020-12-12 12:23] VITALS: BP 114/59
--- NOTE | 2020-12-12 12:27 | Emergency Department Report ---
ED General Adult HPI - General Chief complaint: Extremity Injury, Lower Stated complaint: RT FOOT SWOLLEN Time Seen by Provider: 12/12/20 12:23 Source: EMS Mode of arrival: Wheelchair Limitations: Physical Limitation - History of Present Illness Initial comments: 60-year-old -[place] male patient with history of diabetes presents with complaint of right ankle, foot, and lower leg pain after a fall injury 2 days ago. He rates his pain as a 9/10 in severity and states he is having difficulty ambulating and moving his ankle. He admits to some swelling. He denies any numbness/tingling or weakness in his foot. No skin changes per patient. Patient has history of diabetes. - Related Data Previous Rx's Medication Instructions Recorded Last Taken Type Syrge-Ndl,Ins 0.5 ml Half Prabhu 1 each ACHS #100 disp.syrin 02/26/20 Unknown Rx [Droplet Insulin Syringe] Insulin NPH/Regular [NovoLIN 70/30] 22 unit SUB-Q BIDDIAB #2 vial 10/13/20 Unknown Rx Insulin Regular, Human [HumuLIN R] 5 units SC ACHS #2 vial 10/13/20 Unknown Rx Omeprazole 20 mg PO QDAY #20 capsule. 10/13/20 Unknown Rx Insulin NPH/Regular [NovoLIN 70/30] 20 unit SUB-Q BIDDIAB #10 ml 10/21/20 Unknown Rx Acetaminophen/Codeine [Tylenol 1 tab PO Q6H PRN #12 tab 12/12/20 Unknown Rx /Codeine # 3 tab] Naproxen [Naprosyn] 500 mg PO BID PRN #20 tablet 12/12/20 Unknown Rx Allergies Allergy/AdvReac Type Severity Reaction Status Date / Time No Known Allergies Allergy Verified 12/12/20 12:23 ED Review of Systems ROS: Stated complaint: RT FOOT SWOLLEN Other details as noted in HPI Constitutional: denies: chills, diaphoresis, fever, malaise Musculoskeletal: joint swelling, arthralgia Skin: denies: change in color Neurological: denies: numbness, paresthesias ED Past Medical Hx - Past Medical History Hx Congestive Heart Failure: No Hx Diabetes: Yes Hx Liver Disease: No Hx Asthma: No Hx COPD: No - Surgical History Additional Surgical History: AMPUTATION OF TOE - Social History Smoking Status: Never Smoker Substance Use Type: None - Medications Home Medications: Home Medications Medication Instructions Recorded Confirmed Last Taken Type Syrge-Ndl,Ins 0.5 ml Half Prabhu 1 each ACHS #100 disp.syrin 02/26/20 10/11/20 Unknown Rx [Droplet Insulin Syringe] Insulin NPH/Regular [NovoLIN 70/30] 22 unit SUB-Q BIDDIAB #2 vial 10/13/20 Unknown Rx Insulin Regular, Human [HumuLIN R] 5 units SC ACHS #2 vial 10/13/20 Unknown Rx Omeprazole 20 mg PO QDAY #20 capsule. 10/13/20 Unknown Rx Insulin NPH/Regular [NovoLIN 70/30] 20 unit SUB-Q BIDDIAB #10 ml 10/21/20 Unknown Rx Acetaminophen/Codeine [Tylenol 1 tab PO Q6H PRN #12 tab 12/12/20 Unknown Rx /Codeine # 3 tab] Naproxen [Naprosyn] 500 mg PO BID PRN #20 tablet 12/12/20 Unknown Rx ED Physical Exam - General Limitations: Physical Limitation General appearance: alert, in no apparent distress - Head Head exam: Present: atraumatic, normocephalic - Eye Eye exam: Absent: scleral icterus - Respiratory Respiratory exam: Absent: respiratory distress - Cardiovascular Cardiovascular Exam: Present: regular rate - Expanded Lower Extremity Exam Right Lower Leg exam: Present: tenderness (Lower tibial tenderness to palpation noted), swelling (Mild). Absent: ecchymosis, deformity, crepidus, Magaly's sign Ankle exam: Present: tenderness (Lateral with moderate swelling). Absent: full ROM (Limited secondary to pain), ecchymosis, deformity, crepidus, erythema Foot/Toe exam: Present: full ROM, tenderness (Pain noted to proximal MTs), swelling (Mild). Absent: ecchymosis, erythema, calcaneal tenderness Neuro vascular tendon exam: Absent: pulse deficit, abnormal cap refill Gait: Positive: observed and limited by pain - Neurological Exam Neurological exam: Present: alert, oriented X3 - Psychiatric Psychiatric exam: Present: normal affect, normal mood - Skin Skin exam: Present: warm, dry, intact, normal color. Absent: rash ED Course Vital Signs 12/12/20 12:18 Temperature 98 F Pulse Rate 80 Respiratory 16 Rate Blood Pressure 114/59 O2 Sat by Pulse 96 Oximetry - Procedure Description Procedures done: Huber splint applied to right lower leg. Patient tolerated procedure well without any immediate complications. He denies any pain with splint and has normal sensation and perfusion of the toes post splint application ED Medical Decision Making - Radiology Data Radiology results: report reviewed RIGHT FOOT 3 VIEWS INDICATION / CLINICAL INFORMATION: MAIN. COMPARISON: None available. FINDINGS: The great toe has been surgically removed. There is a questionable fracture of the proximal phalanx of the second toe which may be old. Advanced degenerative changes seen in the second and third metatarsophalangeal joints. Small calcaneal spurs are present. RIGHT TIBIA AND FIBULA 4 VIEWS INDICATION / CLINICAL INFORMATION: lateral pain after fall. COMPARISON: None available. FINDINGS: Spiral fracture of the distal fibula with mild displacement. No other significant skeletal abnormality - Medical Decision Making 60-year-old -[place] male patient with history of diabetes presents with complaint of right ankle, foot, and lower leg pain after a fall injury 2 days ago. He rates his pain as a 9/10 in severity and states he is having difficulty ambulating and moving his ankle. He admits to some swelling. He denies any numbness/tingling or weakness in his foot. No skin changes per patient. Patient has history of diabetes. X-ray shows spiral fracture of the distal fibula with mild displacement. Patient placed in a [place] splint and provided with crutches. Discussed importance of follow-up with orthopedics within 2 days. His vitals are within normal limits, he is well-appearing, he is stable for discharge home. Strict return precautions discussed in great detail with patient who verbalizes understanding. Critical care attestation.: If time is entered above; I have spent that time in minutes in the direct care of this critically ill patient, excluding procedure time. ED Disposition Clinical Impression: Fracture of distal end of fibula Qualifiers: Encounter type: initial encounter Fracture type: closed Fracture morphology: other fracture Laterality: right Qualified Code(s): S82.831A - Other fracture of upper and lower end of right fibula, initial encounter for closed fracture Disposition: - TO HOME OR SELFCARE Is pt being admited?: No Condition: Stable Instructions: Tibial and Fibular Fractures, Cast or Splint Care, Adult Prescriptions: Naproxen [Naprosyn] 500 mg PO BID PRN #20 tablet PRN Reason: pain Acetaminophen/Codeine [Tylenol /Codeine # 3 tab] 1 tab PO Q6H PRN #12 tab PRN Reason: Pain , Severe (7-10) Referrals: [facility] [Provider Group] - 3-5 Days
--- NOTE | 2020-12-12 12:59 | XRay Report ---
RIGHT TIBIA AND FIBULA 4 VIEWS INDICATION / CLINICAL INFORMATION: lateral pain after fall. COMPARISON: None available. FINDINGS: Spiral fracture of the distal fibula with mild displacement. No other significant skeletal abnormalit y Signer Name: Shna Pettit MD FACR Signed: 12/12/2020 12:54 PM Workstation Name: [id number]
--- NOTE | 2020-12-12 13:00 | XRay Report ---
RIGHT FOOT 3 VIEWS INDICATION / CLINICAL INFORMATION: MAIN. COMPARISON: None available. FINDINGS: The great toe has been surgically removed. There is a questionable fracture of the proximal phalanx o f the second toe which may be old. Advanced degenerative changes seen in the second and third metatar sophalangeal joints. Small calcaneal spurs are present. Signer Name: Shan PACHECO Signed: 12/12/2020 12:56 PM Workstation Name: [id number]
[2020-12-12] MEDS ORDERED: IBUPROFEN 800 MG TAB PO ONE (13:15)
[2020-12-12] MEDS ORDERED: oxyCODONE /ACETAMINOPHEN 5-325MG TAB PO ONE (13:15)
== END 2020-12-12 16:42 | disposition home or self-care (01) ==
LOC: ED 11:12
DX: S82.831A Other fracture of upper and lower end of right fibula, initial encounter for closed fracture (principal); E11.9 Type 2 diabetes mellitus without complications; Z98.890 Other specified postprocedural states; Z79.899 Other long term (current) drug therapy; W18.30XA Fall on same level, unspecified, initial encounter; Y93.89 Activity, other specified; Y92.89 Other specified places as the place of occurrence of the external cause; Y99.8 Other external cause status

== ENCOUNTER 2020-12-18 14:28 | Emergency (ER) | payer SELFPAY | END 2020-12-18 15:15 | disposition left against medical advice (07) | LOC: ED 14:28 | DX: Z53.21 Procedure and treatment not carried out due to patient leaving prior to being seen by health care provider (principal) ==